=== PATIENT | female | born 1935 | race Caucasian/White ===

== ENCOUNTER 2017-11-29 16:48 | Inpatient (IN) | payer MEDICARE ==
[2017-11-29] MEDS: hydrALAZINE 25 MG TAB PO SCH (20:30)
[2017-11-29] MEDS: traMADol HCl 50 MG TAB PO SCH (20:31)
[2017-11-29] MEDS: Acetaminophen 500 MG TAB PO PRN (22:53)
[2017-11-29] MEDS: Metoclopramide HCl 10 MG/2 ML VIAL IVP SCH (22:53)
[2017-11-30] MEDS: Ondansetron ODT 4 MG TAB PO PRN (04:19)
[2017-11-30] MEDS: Metoclopramide HCl 10 MG/2 ML VIAL IVP SCH ×3 (05:29→18:05)
[2017-11-30] MEDS: Sodium Chloride 0.9% 20 ML ONE ×2 (05:29→12:31)
[2017-11-30 05:44] LABS: #Basophils 0.1 thou/uL (0.0-0.2); #Eosinphils 0.2 thou/uL (0.0-0.7); #Lymphocytes 0.5 thou/uL (1.20-3.40); #Monocytes 0.9 thou/uL (0.11-0.59); %Basophils 0.5 % (0.0-1.0); %Eosinophils 1.1 % (0.0-10.0); %Lymphocytes 3.1 % (21.0-51.0); %Monocytes 6.2 % (0.0-10.0); %Neutrophils 89.1 % (42.0-75.0); Hemoglobin 9.6 g/dL (12.0-16.0); Mean Corpuscular Hemoglobin 29.3 pg (27.0-31.0); Mean Corpuscular Volume 91.5 fl (81.0-99.0); Mean Platelet Volume 5.6 fL (7.4-10.4); Platelet Count 315 thou/uL (130-400); RBC Distribution Width 11.6 % (11.5-14.5); Red Blood Cell (RBC) Count 3.28 mill/uL (4.20-5.40); White Blood Cell (WBC) Count 14.6 thou/uL (4.8-10.8)
[2017-11-30 05:54] LABS: Anion Gap 13 mmol/L (10-20); BUN (Urea Nitrogen) 20 mg/dL (9.8-20.1); Calc. Creatinine Clearance 56 mL/min (70-130); Calcium 8.6 mg/dL (7.8-10.44); Carbon Dioxide 23 mmol/L (23-31); Chloride 107 mmol/L (98-107); Estimated GFR-MDRD 65; Glucose 110 mg/dL (83-110); Potassium 3.6 mmol/L (3.5-5.1); Sodium 139 mmol/L (136-145)
[2017-11-30] MEDS ORDERED: Prevnar 13-Val Conj/PF 0.5 ML SYRINGE IM ONE (09:00)
[2017-11-30] MEDS: Polyethylene Glycol 3350 17 GM Packet PO SCH (10:05)
[2017-11-30] MEDS: traMADol HCl 50 MG TAB PO SCH (10:06)
[2017-11-30] MEDS: Enoxaparin Sodium 30 MG/0.3 ML SYRINGE SC SCH (10:06)
[2017-11-30] MEDS: Metoprolol Tartrate 50 MG TAB PO SCH (10:08)
[2017-11-30] MEDS ORDERED: Sodium Chloride 0.9% 10 ML ONE ×2 (12:25→17:35)
--- NOTE | 2017-11-30 15:44 | HP ---
DATE OF ADMISSION: 11/29/2017 CHIEF COMPLAINT: Status post obstruction requiring surgical sigmoidectomy and colostomy, hypertensio n, resolving small-bowel obstruction and improving acute kidney injury. BRIEF HISTORY: This is a pleasant 82-year-old female, who was admitted with abdominal pain and constipation. CT scan on showed bowel obstruction. She underwent exploratory lapar otomy and was noted to have a sigmoid mass and underwent sigmoidectomy with end colostomy. She also had a large hiatal hernia and so underwent a gastropexy with hiatal hernia repair by anchoring a PEG tube. Her pathology showed chronic diverticular disease. She was treated with IV antibiotic and IV fluids, pain medications and was slowly improving, but then she had an episode of abdominal distentio n and was diagnosed with ileus. She was managed conservatively and then slowly started improving aga in and was tolerating diet and so was transferred here. Since arriving here, she has not had any out put in her colostomy. She is complaining of pain all over. She states that she is passing flatus. She denies any fever or chills. Denies any chest pain or shortness of breath. She did eat some for breakfast and lunch. PAST SURGICAL HISTORY: 1. Cholecystectomy. 2. Hysterectomy. 3. Rectocele and cystocele repair. 4. History of temporary dialysis access placement. PAST MEDICAL HISTORY: 1. Hypertension. 2. Hiatal hernia. 3. Gastroesophageal reflux disease. 4. Degenerative joint disease. 5. Temporary hemodialysis. 6. Dyslipidemia. 7. Depression. FAMILY HISTORY: Noncontributory to current admission. PSYCHOSOCIAL HISTORY: No documented tobacco, alcohol or IV drug abuse. He was fairly active and ind ependent. REVIEW OF SYSTEMS: CARDIOVASCULAR: Denies any chest pain, shortness of breath, palpitations, paroxysmal nocturnal dyspn ea, orthopnea, pedal edema. RESPIRATORY: Denies any chronic cough, expectoration or pleuritic type chest pain. GASTROINTESTINAL: See history of present illness. GENITOURINARY: Denies any frequency, urgency, dysuria or hematuria. CENTRAL NERVOUS SYSTEM: Generalized weakness. PHYSICAL EXAMINATION: GENERAL: Very pleasant 82-year-old, thin, female, in no apparent distress other than pain. VITAL SIGNS: She is afebrile, heart rate 84, respirations 20, oxygen saturation 92% on room air, blo od pressure 165/44. HEENT: Normocephalic, atraumatic. Pupils equal and reactive to light and accommodation. NECK: No JVD, thyromegaly, cervical adenopathy, throat exudates or carotid bruits. CARDIOVASCULAR: S1 and S2 plus, rate and rhythm regular. RESPIRATORY: Normal vesicular breath sounds in all lung wagoner. ABDOMEN: Soft, minimal tenderness. Bowel sounds are heard in all quadrants. No organomegaly, no pa lpable mass, no CVA angle tenderness. PEG tube site is healthy. EXTREMITIES: Without cyanosis or clubbing. Peripheral pulses are palpable. CENTRAL NERVOUS SYSTEM: Generalized weakness. LABORATORY VALUES: Does show an elevated white count of 14.6, H&H is 9.6 and 30. Sodium 139, potass ium 3.6, BUN and creatinine is 20 and 0.84. IMPRESSION: 1. Recent large intestinal obstruction due to sigmoid mass, status post sigmoidectomy and colostomy placement. 2. Postoperative ileus which has resolved, but looks like it may be a recurring. 3. Hypertension. 4. Gastroesophageal reflux disease. 5. Dyslipidemia. 6. Depression. 7. Leukocytosis. 8. Pain. PLAN: 1. Increase tramadol to 50 mg q.6 hours. 2. Check KUB. 3. Monitor output through colostomy. 4. Continue current medications. 5. Physical therapy. 6. Nutritional support. 7. DVT and stress ulcer prophylaxis. 8. Routine laboratory values. 9. Discussed with patient and nursing in detail and all questions answered.
[2017-11-30] MEDS: Guaifenesin DM 100-10/5 ML UDCUP PO PRN (16:10)
[2017-11-30] MEDS: traMADol HCl 50 MG TAB PO PRN (16:12)
--- NOTE | 2017-11-30 16:23 | RAD ---
PORTABLE SUPINE AP ABDOMINAL RADIOGRAPH 11/30/17 HISTORY: Abdominal distention. Surgical intervention for ileus last week. No bowel movement in 24 hours. Patie nt with colostomy. COMPARISON: 11/28/17. FINDINGS: Dilated loops of distended gas filled small bowel are again present. there has been progression of co ntrast into the colon with contrast seen in the transverse and descending colon. Midline surgical cli ps are again seen with surgical clips overlying the right upper quadrant. There is a radiopaque rachel ter overlying the left mid lung zone which may be related to enteric feeding tube. Vertebroplasty alex nges of lumbar vertebral body are seen with degenerative changes seen in the spine. No other interval change from prior exam. IMPRESSION: 1. Persistent distended and dilated gas filled loops of small bowel suggesting either partial sm all bowel obstruction versus ileus. There is contrast now seen in the colon. 2. Postsurgical changes of the abdomen and pelvis. 3. Enteric feeding tube noted in place in the left lower quadrant. 4. Elevation of right hemidiaphragm. POS: [facility]
[2017-11-30] MEDS: Dextrose 5 % And 0.9 % NaCl 1,000 ML IV SCH (18:55)
[2017-11-30] MEDS: hydrALAZINE 25 MG TAB PO SCH (20:11)
[2017-12-01] MEDS: Metoclopramide HCl 10 MG/2 ML VIAL IVP SCH ×4 (00:27→18:48)
[2017-12-01] MEDS: Labetalol HCl 100 MG/20 ML VIAL SLOW IVP PRN ×4 (00:33→20:47)
[2017-12-01 05:26] LABS: #Basophils 0.1 thou/uL (0.0-0.2); #Eosinphils 0.1 thou/uL (0.0-0.7); #Lymphocytes 0.5 thou/uL (1.20-3.40); #Monocytes 0.8 thou/uL (0.11-0.59); #Neutrophils 10.8 thou/uL (1.40-6.50); %Basophils 0.4 % (0.0-1.0); %Eosinophils 0.6 % (0.0-10.0); %Monocytes 6.6 % (0.0-10.0); %Neutrophils 88.3 % (42.0-75.0); Hemoglobin 9.4 g/dL (12.0-16.0); Mean Corpuscular HGB CONC 32.5 g/dL (32.0-36.0); Mean Corpuscular Hemoglobin 29.4 pg (27.0-31.0); Mean Corpuscular Volume 90.4 fl (81.0-99.0); Mean Platelet Volume 5.6 fL (7.4-10.4); Platelet Count 286 thou/uL (130-400); RBC Distribution Width 11.5 % (11.5-14.5); White Blood Cell (WBC) Count 12.3 thou/uL (4.8-10.8)
[2017-12-01 05:34] LABS: Lactic Acid 0.6 mmol/L (0.5-2.2)
[2017-12-01 05:38] LABS: Anion Gap 12 mmol/L (10-20); BUN (Urea Nitrogen) 16 mg/dL (9.8-20.1); Calc. Creatinine Clearance 56 mL/min (70-130); Calcium 8.5 mg/dL (7.8-10.44); Carbon Dioxide 24 mmol/L (23-31); Chloride 106 mmol/L (98-107); Estimated GFR-MDRD 65; Glucose 138 mg/dL (83-110); Potassium 3.3 mmol/L (3.5-5.1); Sodium 139 mmol/L (136-145)
[2017-12-01] MEDS: Dextrose 5 % And 0.9 % NaCl 1,000 ML IV SCH (08:00)
[2017-12-01] MEDS ORDERED: cloNIDine 0.1mg/24 Hour PATCH TD SCH (09:00)
[2017-12-01] MEDS: Enoxaparin Sodium 30 MG/0.3 ML SYRINGE SC SCH (10:16)
[2017-12-01] MEDS: Metoprolol Tartrate 50 MG TAB PO SCH (10:17)
[2017-12-01] MEDS: Polyethylene Glycol 3350 17 GM Packet PO SCH (10:18)
[2017-12-01] MEDS: Ondansetron HCl/PF 4 MG/2 ML Vial SLOW IVP PRN (15:46)
--- NOTE | 2017-12-01 16:15 | PRG ---
DATE OF SERVICE: 12/01/2017 SUBJECTIVE: Ms. Musa is feeling better. She has put out close to 1800 mL out of her PEG tube. S he states that she is still passing gas, but very little. Her pain is improved with the morphine. I advised her about my discussion with Dr. Hull yesterday. He stated that this is most likely postop ileus and the more she gets up and moves around the better. She is going to feel and faster the bow els are going to regain function. No family at bedside. OBJECTIVE: VITAL SIGNS: She is afebrile, heart rate 96, respirations are 18, oxygen saturation 94% on 2 liters, and blood pressure 189/92. CARDIOVASCULAR SYSTEM: S1, S2 plus. RESPIRATORY SYSTEM: Normal vesicular breath sounds. ABDOMEN: Soft, nontender, bowel sounds heard in all quadrants, but hypoactive. EXTREMITIES: Without cyanosis or clubbing. LABORATORY VALUES: White count is down to 12.3, H and H is 9.4 and 28.9. Sodium 139, potassium is l ow at 3.3, BUN and creatinine 16 and 0.83. IMPRESSION: 1. Postoperative ileus. 2. Hypokalemia. 3. Improving pain. 4. Improving leukocytosis. 5. Hypertension, not well controlled. 6. Deconditioning. PLAN: 1. Increase clonidine patch to TTS 2. 2. Change IV fluids to D5 normal saline with 20 mEq of KCl. 3. Encourage activity. 4. Routine laboratory values. 5. DVT and stress ulcer prophylaxis. 6. Decubitus precautions. 7. Routine laboratory values. 8. Discussed with patient and nursing in detail and all questions answered.
[2017-12-01] MEDS: D5 0.9% NS w/ 20 mEq KCl 1,000 ML IV SCH (16:45)
[2017-12-01] MEDS: hydrALAZINE 25 MG TAB PO SCH (20:41)
[2017-12-02] MEDS: D5 0.9% NS w/ 20 mEq KCl 1,000 ML IV SCH ×3 (02:10→22:12)
[2017-12-02] MEDS: Labetalol HCl 100 MG/20 ML VIAL SLOW IVP PRN ×3 (03:13→17:28)
[2017-12-02] MEDS: Metoclopramide HCl 10 MG/2 ML VIAL IVP SCH ×4 (05:20→18:36)
[2017-12-02 05:33] LABS: #Lymphocytes 0.4 thou/uL (1.20-3.40); #Monocytes 0.8 thou/uL (0.11-0.59); #Neutrophils 10.4 thou/uL (1.40-6.50); %Basophils 0.4 % (0.0-1.0); %Eosinophils 0.4 % (0.0-10.0); %Lymphocytes 3.5 % (21.0-51.0); %Monocytes 7.1 % (0.0-10.0); %Neutrophils 88.6 % (42.0-75.0); Hemoglobin 8.8 g/dL (12.0-16.0); Mean Corpuscular HGB CONC 32.1 g/dL (32.0-36.0); Mean Corpuscular Hemoglobin 29.2 pg (27.0-31.0); Mean Corpuscular Volume 91.2 fl (81.0-99.0); Mean Platelet Volume 5.6 fL (7.4-10.4); Platelet Count 299 thou/uL (130-400); RBC Distribution Width 11.6 % (11.5-14.5); Red Blood Cell (RBC) Count 3.01 mill/uL (4.20-5.40); White Blood Cell (WBC) Count 11.7 thou/uL (4.8-10.8)
[2017-12-02 05:44] LABS: Anion Gap 12 mmol/L (10-20); BUN (Urea Nitrogen) 15 mg/dL (9.8-20.1); Calc. Creatinine Clearance 58 mL/min (70-130); Calcium 8.4 mg/dL (7.8-10.44); Carbon Dioxide 25 mmol/L (23-31); Chloride 110 mmol/L (98-107); Estimated GFR-MDRD 67; Glucose 150 mg/dL (83-110); Potassium 3.7 mmol/L (3.5-5.1); Sodium 143 mmol/L (136-145)
[2017-12-02] MEDS ORDERED: Sodium Chloride 0.9% 10 ML ONE (09:21)
[2017-12-02] MEDS: Enoxaparin Sodium 30 MG/0.3 ML SYRINGE SC SCH (09:50)
[2017-12-02] MEDS: Metoprolol Tartrate 50 MG TAB PO SCH ×2 (09:51→15:11)
[2017-12-02] MEDS: Polyethylene Glycol 3350 17 GM Packet PO SCH (09:51)
--- NOTE | 2017-12-02 13:26 | PRG ---
DATE OF SERVICE: 12/02/2017 SUBJECTIVE: Ms. Musa is doing the same. She states that she feels hungry and she would like to t ry to eat something. She is hardly doing any with therapy. She apparently sat up for a while. She is still having significant drainage from her G-tube. Since this morning, actually she had 1350 out for the last 24 hours and she has about 600 mL in the bag right now. She states that she is passing flatus. She denies any fever or chills. She states that she is sore in her neck area. OBJECTIVE: VITAL SIGNS: She is afebrile, heart rate 83, respirations 20, oxygen saturation 97%, and blood press ure 178/79. CARDIOVASCULAR SYSTEM: S1, S2 plus. RESPIRATORY SYSTEM: Normal breath sounds. ABDOMEN: Soft, minimal distention. Hypoactive bowel sounds. EXTREMITIES: Without cyanosis or clubbing. LABORATORY DATA: Shows white count of 11.7, hemoglobin and hematocrit of 8.8 and 27.5. Sodium 143, potassium 3.7, BUN and creatinine is 15 and 0.81. Her lactic acid level was 0.6. IMPRESSION: 1. Paralytic postoperative ileus. 2. Improving leukocytosis. 3. Hypertension, not well controlled. 4. Resolved hypokalemia. 5. Deconditioning. PLAN: 1. Change her to clonidine TTS. 2. Continue IV fluids. 3. Start her on a clear liquid diet. 4. DVT and stress ulcer prophylaxis. 5. Decubitus precautions. 6. Routine laboratory values. 7. Discussed with patient and nursing in detail. All questions answered.
[2017-12-02] MEDS ORDERED: cloNIDine 0.1mg/24 Hour PATCH TD SCH (14:00)
[2017-12-02] MEDS: cloNIDine 0.3mg/24 Hour PATCH TD SCH (14:39)
[2017-12-02] MEDS: traMADol HCl 50 MG TAB PO PRN (15:11)
[2017-12-02] MEDS: hydrALAZINE 25 MG TAB PO SCH (21:41)
[2017-12-03] MEDS: Metoclopramide HCl 10 MG/2 ML VIAL IVP SCH ×5 (00:05→22:42)
[2017-12-03] MEDS: Labetalol HCl 100 MG/20 ML VIAL SLOW IVP PRN ×2 (04:39→12:56)
[2017-12-03] MEDS: D5 0.9% NS w/ 20 mEq KCl 1,000 ML IV SCH ×2 (08:25→18:25)
[2017-12-03] MEDS: Polyethylene Glycol 3350 17 GM Packet PO SCH (09:00)
[2017-12-03] MEDS: Enoxaparin Sodium 30 MG/0.3 ML SYRINGE SC SCH (10:26)
[2017-12-03] MEDS: Metoprolol Tartrate 50 MG TAB PO SCH (10:26)
--- NOTE | 2017-12-03 14:18 | PRG ---
DATE OF SERVICE: 12/03/2017 SUBJECTIVE: Ms. Musa was feeling much better today. Denies any nausea or vomiting. She still brandt s some back pain. No fever or chills. She is tolerating her clear liquids. The plan is to clamp he r G-tube completely and see how she does with clears today and if she does well, then we will advance to full liquid diet. I again encouraged her to get up and move around. Her spouse is in the room. She has been restarted back on her oral medications for her blood pressure and still fluctuating. OBJECTIVE: VITAL SIGNS: She is afebrile, heart rate is 80, respirations are 20, blood pressure 205/86 and is do wn to 190/84. CARDIOVASCULAR: S1, S2 plus. RESPIRATORY: Normal vesicular breath sounds. ABDOMEN: Soft, nontender. Hypoactive bowel sounds. EXTREMITIES: Without cyanosis or clubbing. IMPRESSION: 1. Postoperative ileus. 2. Recent large bowel obstruction, status post sigmoid resection and colostomy. 3. Hypertension, not well controlled. 4. Deconditioning. PLAN: 1. Add amlodipine. 2. Clear liquid diet. 3. Clamp G-tube. 4. Increase activity. 5. DVT and stress ulcer prophylaxis. 6. Pain control. 7. I discussed with the patient and spouse in detail. All questions answered. 8. Dr. Carl Roe on-call now until 9:00 p.m. 12/08/2017.
[2017-12-03] MEDS: hydrALAZINE 25 MG TAB PO SCH ×2 (16:19→20:02)
[2017-12-03] MEDS: Acetaminophen 500 MG TAB PO PRN (16:23)
[2017-12-03] MEDS: traMADol HCl 50 MG TAB PO PRN (16:23)
[2017-12-04] MEDS: D5 0.9% NS w/ 20 mEq KCl 1,000 ML IV SCH ×3 (03:09→23:23)
[2017-12-04] MEDS: Metoclopramide HCl 10 MG/2 ML VIAL IVP SCH ×4 (04:57→23:27)
[2017-12-04] MEDS ORDERED: Sodium Chloride 0.9% 10 ML ONE (05:11)
[2017-12-04 05:45] LABS: Anion Gap 11 mmol/L (10-20); BUN (Urea Nitrogen) 15 mg/dL (9.8-20.1); Calc. Creatinine Clearance 64 mL/min (70-130); Calcium 8.5 mg/dL (7.8-10.44); Carbon Dioxide 22 mmol/L (23-31); Chloride 112 mmol/L (98-107); Estimated GFR-MDRD 76; Glucose 135 mg/dL (83-110); Sodium 141 mmol/L (136-145)
[2017-12-04 06:03] LABS: Band 20 % (5-11); Eosinophils 2 % (0-10); Hemoglobin 8.6 g/dL (12.0-16.0); Lymphocytes 7 % (21-51); MDiff Complete? YES; Mean Corpuscular HGB CONC 32.1 g/dL (32.0-36.0); Mean Corpuscular Hemoglobin 29.5 pg (27.0-31.0); Mean Corpuscular Volume 91.7 fl (81.0-99.0); Mean Platelet Volume 5.8 fL (7.4-10.4); Metamyelocyte 1 % (0-0); Monocytes 4 % (0-10); Neutrophil 66 % (42-75); PLT Morphology Comment Appears Adequate; Platelet Count 312 thou/uL (130-400); RBC Distribution Width 12.3 % (11.5-14.5); RBC Morphology Normal; White Blood Cell (WBC) Count 10.5 thou/uL (4.8-10.8)
[2017-12-04] MEDS: Polyethylene Glycol 3350 17 GM Packet PO SCH (08:11)
[2017-12-04] MEDS: Enoxaparin Sodium 30 MG/0.3 ML SYRINGE SC SCH (08:12)
[2017-12-04] MEDS: hydrALAZINE 25 MG TAB PO SCH ×3 (08:12→22:33)
[2017-12-04] MEDS: Metoprolol Tartrate 50 MG TAB PO SCH (08:12)
[2017-12-04] MEDS: Acetaminophen 500 MG TAB PO PRN ×2 (08:13→17:30)
[2017-12-04] MEDS: traMADol HCl 50 MG TAB PO PRN (17:30)
--- NOTE | 2017-12-05 00:16 | PRG ---
DATE OF SERVICE: 12/04/2017 DATE OF ADMISSION: 11/29/2017 HISTORY OF PRESENT ILLNESS: Ms. Musa is a very pleasant 82-year-old white female that was admitte d on 11/21/2017 with a bowel obstruction. She underwent exploratory laparoscopy and had a sigmoid ma ss and underwent sigmoidectomy and end colostomy. She also had a large hiatal hernia when under jt ropexy with hiatal hernia repair by anchoring a PEG tube. Her pathology revealed chronic diverticula r disease. She was treated with IV antibiotics, IV fluids, and eventually has improved. She was man aged conservatively and then has been improving. She was transferred to [facility] f or continued physical therapy and occupational therapy. She states she is doing well and has no comp laints today. PHYSICAL EXAMINATION: VITAL SIGNS: Reveal blood pressure this morning was elevated at 136-65, but most of the time is runn ing 170s-180s. Pulse 82-73, respirations 20, O2 sat 96%-97% on 2 liters. T-max 98.1. GENERAL: This is a well-developed, well-nourished, very pleasant white female, in no apparent distre ss at this time. HEENT: Reveals normocephalic, nontraumatic cranium. Pupils equally round and reactive. Extraocular movements intact. Nose and throat are slightly dry. NECK: Supple, without mass, nodes, or bruits. LUNGS: Chest is clear to auscultation. No rales, no rhonchi, no wheezes or cough is heard. CARDIOVASCULAR: Heart reveals a regular rate and rhythm without murmurs, gallops, or rubs. ABDOMEN: Soft and nontender, without organomegaly. Normal bowel sounds are noted in all 4 quadrants . GENITOURINARY EXAM: Deferred. Colostomy is functioning well. EXTREMITIES: Reveal no clubbing, cyanosis, or edema. IMPRESSION: 1. Postoperative ileus, which is much better. 2. Recent bowel obstruction, status post sigmoid resection and colostomy. 3. Hypertension, still not well controlled. 4. Deconditioning. PLAN: 1. Amlodipine has been added. 2. Continue clear liquid diet as able. 3. Clamp G-tube. 4. Increase activity. 5. DVT and stress ulcer prophylaxis. 6. Continue pain control. 7. Continue PT and OT.
[2017-12-05] MEDS: Acetaminophen 500 MG TAB PO PRN ×2 (02:35→15:42)
[2017-12-05] MEDS: traMADol HCl 50 MG TAB PO PRN ×2 (02:36→15:43)
[2017-12-05] MEDS: Metoclopramide HCl 10 MG/2 ML VIAL IVP SCH ×3 (06:14→17:47)
[2017-12-05] MEDS: Polyethylene Glycol 3350 17 GM Packet PO SCH (09:13)
[2017-12-05] MEDS: Enoxaparin Sodium 30 MG/0.3 ML SYRINGE SC SCH (09:13)
[2017-12-05] MEDS: Metoprolol Tartrate 50 MG TAB PO SCH (09:14)
[2017-12-05] MEDS: hydrALAZINE 25 MG TAB PO SCH ×3 (09:14→21:00)
[2017-12-05] MEDS: D5 0.9% NS w/ 20 mEq KCl 1,000 ML IV SCH ×2 (09:48→19:11)
[2017-12-05] MEDS: Ondansetron HCl/PF 4 MG/2 ML Vial SLOW IVP PRN (09:49)
--- NOTE | 2017-12-05 22:37 | PRG ---
DATE OF SERVICE: 12/05/2017 HISTORY OF PRESENT ILLNESS: Ms. Musa is a very pleasant 82-year-old white female that was admitte d with bowel obstruction. She underwent exploratory laparotomy and had a sigmoid mass with sigmoidos copy and colonoscopy. She has a large hiatal hernia and had a gastropexy with hiatal hernia repair b y emptying the PEG tube. Pathology revealed chronic diverticular disease. She was treated with IV a ntibiotics and IV fluids and eventually improved. She was stabilized and transferred to [facility] for PT and OT. She states she is doing well and has no complaints. PHYSICAL EXAMINATION: VITAL SIGNS: Blood pressure is still slightly elevated 173/76, pulse 80, respirations 18, O2 sat 96% on 2 liters, T-max is 97.5. GENERAL: This is a well-developed, well-nourished, very pleasant white female in no apparent distres s at this time. HEENT: Reveals normocephalic, nontraumatic cranium. Pupils are equally round and reactive. Extraoc ular movements are intact. Nose and throat are clear and moist. NECK: Supple, without mass, nodes, bruits. LUNGS: Chest is clear to auscultation. No rales, rhonchi, wheeze or cough is heard. CARDIOVASCULAR: Reveals a regular rate and rhythm. No murmurs, gallops or rubs are noted. ABDOMEN: Soft, nontender, without organomegaly. Normal bowel sounds are noted. Colostomy is functi oning well. The patient has very slow bowel sounds. GENITOURINARY: Deferred. EXTREMITIES: Reveal no clubbing, cyanosis or edema. IMPRESSION: 1. Postop ileus, slowly better. 2. Recent bowel obstruction, status post sigmoid resection, colostomy. 3. Hypertension, still not well controlled. 4. Deconditioning. PLAN: 1. Amlodipine has been added. We will let it work. 2. We will continue to monitor blood pressure closely. 3. Continue liquid diet as able. 4. Plan G tube. 5. Increase activity. 6. DVT and stress ulcer prophylaxis. 7. We will continue pain control. 8. Continue physical therapy and occupational therapy.
[2017-12-06] MEDS: traMADol HCl 50 MG TAB PO PRN ×3 (00:16→19:35)
[2017-12-06] MEDS: Metoclopramide HCl 10 MG/2 ML VIAL IVP SCH ×4 (00:16→17:42)
[2017-12-06] MEDS: Guaifenesin DM 100-10/5 ML UDCUP PO PRN ×2 (02:12→19:44)
[2017-12-06] MEDS: Ondansetron HCl/PF 4 MG/2 ML Vial SLOW IVP PRN ×2 (02:23→16:29)
[2017-12-06] MEDS: Labetalol HCl 100 MG/20 ML VIAL SLOW IVP PRN ×2 (02:59→19:36)
[2017-12-06] MEDS: D5 0.9% NS w/ 20 mEq KCl 1,000 ML IV SCH ×2 (05:11→14:27)
[2017-12-06 06:30] LABS: #Eosinphils 0.1 thou/uL (0.0-0.7); #Lymphocytes 0.5 thou/uL (1.20-3.40); #Monocytes 0.5 thou/uL (0.11-0.59); #Neutrophils 7.3 thou/uL (1.40-6.50); %Basophils 0.4 % (0.0-1.0); %Eosinophils 1.3 % (0.0-10.0); %Lymphocytes 6.1 % (21.0-51.0); %Monocytes 6.3 % (0.0-10.0); %Neutrophils 85.9 % (42.0-75.0); Hemoglobin 8.4 g/dL (12.0-16.0); Mean Corpuscular HGB CONC 31.4 g/dL (32.0-36.0); Mean Corpuscular Hemoglobin 28.9 pg (27.0-31.0); Mean Corpuscular Volume 92.1 fl (81.0-99.0); Mean Platelet Volume 5.5 fL (7.4-10.4); Platelet Count 335 thou/uL (130-400); RBC Distribution Width 12.3 % (11.5-14.5); White Blood Cell (WBC) Count 8.5 thou/uL (4.8-10.8)
[2017-12-06 06:42] LABS: Anion Gap 10 mmol/L (10-20); BUN (Urea Nitrogen) 11 mg/dL (9.8-20.1); Calc. Creatinine Clearance 64 mL/min (70-130); Calcium 8.5 mg/dL (7.8-10.44); Carbon Dioxide 21 mmol/L (23-31); Chloride 112 mmol/L (98-107); Estimated GFR-MDRD 76; Glucose 122 mg/dL (83-110); Potassium 4.1 mmol/L (3.5-5.1); Sodium 139 mmol/L (136-145)
[2017-12-06] MEDS: Polyethylene Glycol 3350 17 GM Packet PO SCH (09:05)
[2017-12-06] MEDS: Enoxaparin Sodium 30 MG/0.3 ML SYRINGE SC SCH (09:05)
[2017-12-06] MEDS: hydrALAZINE 25 MG TAB PO SCH ×3 (09:06→19:52)
[2017-12-06] MEDS: Metoprolol Tartrate 50 MG TAB PO SCH (09:07)
[2017-12-06] MEDS: Acetaminophen 500 MG TAB PO PRN ×2 (10:04→19:34)
[2017-12-06] MEDS ORDERED: Morphine 4 MG/ML Carpuject SLOW IVP PRN (14:23)
[2017-12-06] MEDS: Ondansetron ODT 4 MG TAB PO PRN (20:38)
[2017-12-06] MEDS: Morphine 4 MG/ML Carpuject SLOW IVP PRN (20:43)
--- NOTE | 2017-12-06 23:19 | PRG ---
DATE OF ADMISSION: 11/29/2017 DATE OF SERVICE: 12/06/2017 SUBJECTIVE: Ms. Musa is a very pleasant 82-year-old white female that was admitted to the [facility] with bowel obstruction. She underwent an exploratory laparotomy, had a sigmoid mass with sigmoidosc ope and colonoscopy. She also had a large hiatal hernia and gastropexy with hiatal hernia repair don e by entering the PEG tube. Pathology revealed chronic diverticular disease. She was treated with I V antibiotics and IV fluids eventually improved. She was stabilized and transferred to [facility] for physical therapy and occupational therapy. She has no complaints today. The patient states she just has no appetite, although she was started on full liquid diet today and s eemed to tolerate that very well. OBJECTIVE: VITAL SIGNS: This morning reveal blood pressure 160/84, pulse 70 to 80, respirations 23, O2 sat 95% on 1 to 2 liters, T-max 98.6. GENERAL: This is a well-developed, well-nourished, very pleasant white female in no apparent distres s at this time. HEENT: Reveals normocephalic, nontraumatic cranium. Pupils are equally round and reactive. Extraoc ular movements intact. Nose and throat are slightly dry. NECK: Supple, without mass, nodes, or bruits. CHEST: Clear to auscultation. No rales, no rhonchi, no wheezes are heard. CARDIOVASCULAR: Reveals a regular rate and rhythm without murmurs, gallops, or rubs. ABDOMEN: Soft, nontender, without organomegaly, normal bowel sounds are noted. No rebound or guardi ng is noted. : Deferred. EXTREMITIES: Reveal no clubbing, cyanosis, or edema. IMPRESSION: 1. Hypertension, still not well controlled. 2. Postop ileus slowly better. 3. Recent bowel obstruction, status post sigmoid resection and colostomy. 4. Deconditioning. PLAN: 1. Amlodipine was added to the blood pressure, but still not seem to be doing much. 2. Continue to monitor blood pressure closely. 3. Continue liquid diet as able. 4. Plan G-tube. 5. Increase activity. 6. Deep venous thrombosis and stress ulcer prophylaxis. 7. Continue pain medicine control. 8. Continue physical therapy and occupational therapy.
[2017-12-07] MEDS: Metoclopramide HCl 10 MG/2 ML VIAL IVP SCH ×4 (00:04→20:51)
[2017-12-07] MEDS: D5 0.9% NS w/ 20 mEq KCl 1,000 ML IV SCH ×3 (02:15→23:40)
[2017-12-07] MEDS: Ondansetron ODT 4 MG TAB PO PRN (02:38)
[2017-12-07] MEDS: Metoprolol Tartrate 50 MG TAB PO SCH (08:33)
[2017-12-07] MEDS: Enoxaparin Sodium 30 MG/0.3 ML SYRINGE SC SCH (08:33)
[2017-12-07] MEDS: hydrALAZINE 25 MG TAB PO SCH ×3 (08:33→20:56)
[2017-12-07] MEDS: Polyethylene Glycol 3350 17 GM Packet PO SCH (08:34)
--- NOTE | 2017-12-07 10:43 | RAD ---
ABDOMEN 2 VIEWS: HISTORY: Obstruction. COMPARISON: None. FINDINGS: Multiple surgical clips are present in the pelvis. There are distended air-filled loops of large and small bowel. Evaluation is limited due to upright examination. On decubitus view, there is no significant free air appreciated. There appears to be a wound vac of left lower quadrant of the abdomen. IMPRESSION: Moderate gaseous distention of large and small bowel suggesting ileus. There is hazy hypodensity thr oughout the abdomen without definite free air of the decubitus view. Upright view is recommended. POS: [facility]
[2017-12-07] MEDS ORDERED: Morphine 4 MG/ML Carpuject ONE (12:54)
[2017-12-07] MEDS: Morphine 4 MG/ML Carpuject SLOW IVP PRN (12:58)
[2017-12-07] MEDS: Labetalol HCl 100 MG/20 ML VIAL SLOW IVP PRN (15:05)
--- NOTE | 2017-12-07 16:11 | RAD ---
ABDOMINAL RADIOGRAPH SINGLE VIEW: INDICATION: Ileus, abdominal pain. COMPARISON: Comparison is made to 11/30/17. FINDINGS: Dilated loops of air-filled bowel with differential air fluid levels are present within the imaged ab domen and pelvis. No obvious free air is seen. No consolidation of the lung bases. Slight blunting of the right lateral costophrenic sulcus may reflect mild pleural fluid versus pleural thickening. IMPRESSION: Dilated bowel of the imaged abdomen with differential air fluid levels. The possibility of ileus monisha morgan mechanical obstruction are diagnostic considerations. Recommend continued imaging followup. POS: [facility]
--- NOTE | 2017-12-07 16:57 | PRG ---
DATE OF SERVICE: 12/07/2017 SUBJECTIVE: Ms. Musa is a very pleasant 82-year-old white female admitted to the hospital with alexander wel obstruction. She underwent exploratory laparotomy and had sigmoid mass with sigmoidoscope and co lonoscopy. She had a large hiatal hernia and gastropexy with hiatal hernia repair done by anchoring the PEG tube. Pathology revealed chronic diverticular disease. She was treated with IV antibiotics and IV fluids, eventually improved and stabilized and transferred to [facility] for p hysical therapy and occupational therapy. The patient over the last couple of days has been nauseated. She has not been eating very well. We did do an abdominal series on her which revealed dilated loops of bowel and so she also has another i leus. We will stop her feedings at this time and put her bowel at rest. We will continue her IV. W e will repeat evaluations this morning and laboratories. PHYSICAL EXAMINATION: VITAL SIGNS: This morning reveal blood pressure is somewhat elevated at 195/85, pulse 71-79, respira tions 16-18, O2 sat 94%-95% on 1 liter nasal cannula, T-max 98.1. GENERAL: This is a well-developed, well-nourished, very pleasant white female in no apparent distres s at this time. HEENT: Reveals normocephalic and nontraumatic cranium. Pupils equal, round, and reactive. Extraocu lar movements are intact. Nose and throat are slightly dry. NECK: Supple, without mass, nodes or bruits. CHEST: Clear to auscultation. No rales, no rhonchi, no wheezes and no cough is noted. HEART: Reveals a regular rate and rhythm without murmurs, gallops or rubs. ABDOMEN: Soft and nontender without organomegaly. Normal bowel sounds are noted. No rebound or gua rding is noted. The patient states she actually feels much better after the NG tube was connected to the feeding tube. She had approximately 700 mL of foul smelling acid looking residual. LABORATORY DATA: Laboratory yesterday revealed white count of 8,500, hemoglobin 8.4, hematocrit 26.7 and platelet count 335,000. Sodium yesterday 139, potassium 4.1, chloride 112, carbon dioxide 21 wi th BUN 11 and creatinine 0.73. GFR was 76. ASSESSMENT: 1. Ileus. 2. Hypertension, not well controlled. 3. Recent bowel obstruction, status post sigmoid resection and colostomy. 4. Deconditioning. PLAN: 1. The patient states she is not having any pain and feels actually much better since we decompresse d her stomach. 2. Continue to monitor the patient's blood pressure closely. 3. Continue n.p.o. at this time. 4. Increase activity. 5. Deep venous thrombosis prophylaxis. 6. Stress ulcer prophylaxis. 7. Pain control as needed. 8. Continue physical therapy and occupational therapy. 9. Place the bowel at rest.
[2017-12-08] MEDS: Labetalol HCl 100 MG/20 ML VIAL SLOW IVP PRN ×4 (00:45→18:16)
[2017-12-08] MEDS: Metoclopramide HCl 10 MG/2 ML VIAL IVP SCH ×3 (06:02→21:44)
[2017-12-08] MEDS: Enoxaparin Sodium 30 MG/0.3 ML SYRINGE SC SCH (08:53)
[2017-12-08] MEDS: D5 0.9% NS w/ 20 mEq KCl 1,000 ML IV SCH ×2 (08:53→18:17)
[2017-12-08] MEDS: Polyethylene Glycol 3350 17 GM Packet PO SCH (08:54)
[2017-12-08] MEDS: hydrALAZINE 25 MG TAB PO SCH ×3 (08:54→21:43)
[2017-12-08] MEDS: Metoprolol Tartrate 50 MG TAB PO SCH (08:54)
[2017-12-08] MEDS: hydrALAZINE 20 MG/ML VIAL SLOW IVP PRN (21:48)
--- NOTE | 2017-12-08 23:44 | PRG ---
DATE OF SERVICE: 12/08/2017 SUBJECTIVE: Ms. Musa is a very pleasant 82-year-old white female with a bowel obstruction. She u nderwent exploratory laparotomy and had a sigmoid mass, which was removed. She has large hiatal melinda ia, for which gastropexy with a hiatal hernia repair was done by anchoring the PEG tube. Pathology r eport revealed only chronic diverticular disease. She was treated with IV antibiotics and IV fluids. She eventually improved, stabilized, and transferred to [facility] for physical the rapy and occupational therapy. The patient states she has not been very hungry. We did do an abdominal series on her yesterday, whi ch revealed most likely another ileus or may be some small bowel obstruction. She has been made n.p. o. and put her bowel at rest at this time. She has not been vomiting. She has not had anything oral ly. We have just given her IV fluids and she has actually done pretty well. She has not had any sig nificant abdominal pain or gotten significantly sick. We have just started her on some Reglan hoping that her bowel sounds will start kicking again. OBJECTIVE: VITAL SIGNS: Blood pressure is elevated at 196/88 and she is off her medication, so we are adding hy dralazine IV q.4 hours p.r.n. blood pressure greater than 170. Pulse 78-85, respirations 18, O2 sat 96% on 1 liter nasal cannula, T-max is 97.2. GENERAL: On physical exam, this is a well-developed, well-nourished, pleasant white female in no katie arent distress at this time. HEENT: Reveals normocephalic, nontraumatic cranium. Pupils are equal, round, and reactive. Extraoc ular movements intact. Nose and throat are slightly dry. NECK: Supple without mass, nodes, or bruits. CHEST: Clear to auscultation. No rales, rhonchi, wheezes are heard. CARDIOVASCULAR: Reveals a regular rate and rhythm without murmurs, gallops, or rubs. ABDOMEN: Soft, still nontender. No rebound or guarding is noted. No bowel sounds are heard today, although they were heard and very slow yesterday. She states she feels much better after her G-tube was hooked to a Joseph bag and approximately 700 mL of foul-smelling acid-looking residual came out. Since then, she has actually been doing very well and has had no complaints of abdominal pain at all. She states she is just not hungry. She has been getting IV fluids. LABORATORY DATA: Laboratory has been stable, not done today. We will have that first thing tomorrow morning, but her labs have actually been stable. Her white count has been 8.5 with a hemoglobin of 8.4, hematocrit 26.7, platelet count 335,000. Sodium has been 139, potassium 4.1, chloride 112, carb on dioxide 21 with a BUN of 11, creatinine 0.73. Sugars have been 122, fasting. ASSESSMENT: 1. Ileus. The patient is presently at bowel rest. 2. Hypertension, not well controlled. We will switch her over to IV medication. 3. Recent bowel obstruction, status post sigmoid resection and colostomy. 4. Deconditioning. 5. Hypertension. PLAN: 1. The patient actually is feeling well and not feeling poorly. I do have her n.p.o. at this time. She has not had any nausea or vomiting. 2. Continue to monitor the patient's blood pressure. We will give hydralazine 25 mg IV q.4 hours p. r.n. systolic blood pressure greater than 70. 3. Continue n.p.o. at this time. 4. Increase activity. 5. Deep venous thrombosis prophylaxis. 6. Stress ulcer prophylaxis. 7. Pain control p.r.n. 8. Continue PT and OT. 9. Bowel rest.
[2017-12-09] MEDS: D5 0.9% NS w/ 20 mEq KCl 1,000 ML IV SCH ×3 (04:06→23:40)
[2017-12-09] MEDS: Labetalol HCl 100 MG/20 ML VIAL SLOW IVP PRN (04:15)
[2017-12-09 05:13] LABS: #Basophils 0.1 thou/uL (0.0-0.2); #Eosinphils 0.2 thou/uL (0.0-0.7); #Lymphocytes 0.6 thou/uL (1.20-3.40); #Monocytes 0.8 thou/uL (0.11-0.59); #Neutrophils 5.6 thou/uL (1.40-6.50); %Basophils 0.8 % (0.0-1.0); %Lymphocytes 8.6 % (21.0-51.0); %Neutrophils 76.8 % (42.0-75.0); Hemoglobin 8.8 g/dL (12.0-16.0); Mean Corpuscular Volume 90.5 fl (81.0-99.0); Mean Platelet Volume 5.4 fL (7.4-10.4); Platelet Count 401 thou/uL (130-400); RBC Distribution Width 12.3 % (11.5-14.5); Red Blood Cell (RBC) Count 3.04 mill/uL (4.20-5.40); White Blood Cell (WBC) Count 7.3 thou/uL (4.8-10.8)
[2017-12-09 05:32] LABS: ALT (SGPT) 16 U/L (8-55); AST (SGOT) 16 U/L (5-34); Albumin 2.5 g/dL (3.4-4.8); Alkaline Phosphatase 90 U/L (40-150); Anion Gap 12 mmol/L (10-20); BUN (Urea Nitrogen) 6 mg/dL (9.8-20.1); Bilirubin, Total 0.4 mg/dL (0.2-1.2); Calc. Creatinine Clearance 62 mL/min (70-130); Calcium 8.7 mg/dL (7.8-10.44); Carbon Dioxide 27 mmol/L (23-31); Chloride 106 mmol/L (98-107); Estimated GFR-MDRD 73; Globulin 2.7 g/dL (2.4-3.5); Glucose 120 mg/dL (83-110); Protein, Total 5.2 g/dL (6.0-8.3); Sodium 141 mmol/L (136-145)
[2017-12-09] MEDS: Metoclopramide HCl 10 MG/2 ML VIAL IVP SCH ×3 (05:38→21:05)
[2017-12-09] MEDS: Metoprolol Tartrate 50 MG TAB PO SCH (08:52)
[2017-12-09] MEDS: Enoxaparin Sodium 30 MG/0.3 ML SYRINGE SC SCH (08:52)
[2017-12-09] MEDS: hydrALAZINE 25 MG TAB PO SCH ×3 (08:52→21:05)
[2017-12-09] MEDS: Polyethylene Glycol 3350 17 GM Packet PO SCH (08:53)
[2017-12-09] MEDS: hydrALAZINE 20 MG/ML VIAL SLOW IVP PRN ×2 (09:55→21:04)
[2017-12-09] MEDS: cloNIDine 0.3mg/24 Hour PATCH TD SCH (13:07)
[2017-12-09] MEDS ORDERED: Nitroglycerin 0.1mg/Hour PATCH TD SCH (14:00)
--- NOTE | 2017-12-09 19:20 | PRG ---
DATE OF SERVICE: 12/09/2017 SUBJECTIVE: Ms. Musa developed ileus over the weekend and had to have her G-tube hooked up to gra vity drainage again. She is n.p.o. and started back on IV fluids. Once she becomes n.p.o., it becom es difficult to manage the blood pressure and hydralazine IV was also added in addition to the labeta lol. We met her daughter, [id number], and spouse in the room and explained the current situatio n, they understand. The plan is to add nitro patch to control her blood pressure and then hopefully tomorrow try to start her on some clear liquid diet. She apparently walked 57 feet on Saturday, but si nce then has not done very much. OBJECTIVE: VITAL SIGNS: She is afebrile, heart rate is 86, respirations are 20, oxygen saturation is 96% on 2 l iters, blood pressure at 09:55 was 200/100 and after getting hydralazine, her blood pressure is 139/6 8, heart rate 117. CARDIOVASCULAR: S1, S2 plus. RESPIRATORY: Normal vesicular breath sounds. ABDOMEN: Hyperactive bowel sounds heard. EXTREMITIES: Without cyanosis or clubbing. CENTRAL NERVOUS SYSTEM: Generalized weakness. LABORATORY VALUES: Shows a white count of 7.3, H&H is 8.8 and 27.3. Chemistry shows a sodium of 141 , potassium 4.0, BUN and creatinine 6.76. IMPRESSION: 1. Recurrent ileus versus obstruction. 2. Recent large intestinal obstruction, requiring sigmoid colectomy and colostomy. 3. Resolved renal insufficiency. 4. Hypertension. 5. Deconditioning. PLAN: 1. Add nitro patch. 2. Continue current medications. 3. IV fluids. 4. Anticipate starting her on clear liquids tomorrow. 5. DVT and stress ulcer prophylaxis. 6. Encouraged her to get up and move around. 7. Discussed with family in detail. All questions answered.
[2017-12-10] MEDS: Metoclopramide HCl 10 MG/2 ML VIAL IVP SCH ×3 (05:41→23:45)
[2017-12-10 05:46] LABS: #Basophils 0.1 thou/uL (0.0-0.2); #Lymphocytes 0.7 thou/uL (1.20-3.40); #Neutrophils 9.4 thou/uL (1.40-6.50); %Basophils 0.6 % (0.0-1.0); %Eosinophils 0.4 % (0.0-10.0); %Lymphocytes 5.9 % (21.0-51.0); %Monocytes 9.1 % (0.0-10.0); Hemoglobin 9.6 g/dL (12.0-16.0); Mean Corpuscular HGB CONC 31.8 g/dL (32.0-36.0); Mean Corpuscular Hemoglobin 28.8 pg (27.0-31.0); Mean Corpuscular Volume 90.4 fl (81.0-99.0); Mean Platelet Volume 5.7 fL (7.4-10.4); Platelet Count 449 thou/uL (130-400); RBC Distribution Width 12.3 % (11.5-14.5); Red Blood Cell (RBC) Count 3.35 mill/uL (4.20-5.40); White Blood Cell (WBC) Count 11.2 thou/uL (4.8-10.8)
[2017-12-10 05:56] LABS: Anion Gap 13 mmol/L (10-20); BUN (Urea Nitrogen) 9 mg/dL (9.8-20.1); Calc. Creatinine Clearance 59 mL/min (70-130); Carbon Dioxide 26 mmol/L (23-31); Chloride 107 mmol/L (98-107); Estimated GFR-MDRD 68; Glucose 129 mg/dL (83-110); Potassium 4.2 mmol/L (3.5-5.1); Sodium 142 mmol/L (136-145)
[2017-12-10] MEDS: Acetaminophen 500 MG TAB PO PRN ×2 (06:00→18:31)
[2017-12-10] MEDS: Nitroglycerin 0.1mg/Hour PATCH TD SCH (09:45)
[2017-12-10] MEDS: D5 0.9% NS w/ 20 mEq KCl 1,000 ML IV SCH ×2 (09:45→20:45)
[2017-12-10] MEDS: Metoprolol Tartrate 50 MG TAB PO SCH (09:46)
[2017-12-10] MEDS: hydrALAZINE 25 MG TAB PO SCH ×3 (09:46→20:44)
[2017-12-10] MEDS: Polyethylene Glycol 3350 17 GM Packet PO SCH (09:47)
[2017-12-10] MEDS: Enoxaparin Sodium 30 MG/0.3 ML SYRINGE SC SCH (09:58)
--- NOTE | 2017-12-10 13:56 | PRG ---
DATE OF SERVICE: 12/10/2017 SUBJECTIVE: Ms. Musa is feeling better today. She was started on some Tylenol for her soreness. She states she feels hungry and would like to try some clear liquids. Gastric drainage was 2000 mL for 12 hours. OBJECTIVE: VITAL SIGNS: She is afebrile, heart rate is 108, respirations 20, oxygen saturation 94% on 1 liter, blood pressure 171/76. CARDIOVASCULAR: S1, S2 plus. RESPIRATORY: Normal vesicular breath sounds. ABDOMEN: Soft, nontender, bowel sounds are present but hypoactive. EXTREMITIES: Without cyanosis or clubbing. LABORATORY VALUES: Shows a sodium 142, potassium 4.2, BUN and creatinine is 9 and 0.8. Blood sugars are 122, 120, 129. White count is 11.2, it has been normal in the last 5 days. H&H is 9.6 and 30.3 . IMPRESSION: 1. Recurrent ileus versus obstruction, status post large bowel obstruction requiring sigmoid colon r esection and colostomy placement. 2. Hypertension, improving, controlled. 3. Resolved renal insufficiency. 4. Deconditioning. 5. Gastroesophageal reflux disease. 6. Dyslipidemia. 7. Depression. PLAN: 1. Trial of clamping PEG tube and starting her on a clear liquid diet. 2. Continue Tylenol. 3. Routine laboratory values. 4. Increase activity. 5. Continue IV fluids. 6. If she is unable to tolerate this, we may have to transfer her up the road since she is really no t getting any nutritional intake.
[2017-12-11] MEDS: traMADol HCl 50 MG TAB PO PRN ×2 (01:28→09:17)
[2017-12-11] MEDS: Metoclopramide HCl 10 MG/2 ML VIAL IVP SCH ×4 (05:06→23:33)
[2017-12-11] MEDS: D5 0.9% NS w/ 20 mEq KCl 1,000 ML IV SCH ×2 (05:06→15:41)
[2017-12-11] MEDS: Acetaminophen 500 MG TAB PO PRN (05:17)
[2017-12-11 05:22] LABS: #Basophils 0.1 thou/uL (0.0-0.2); #Lymphocytes 0.6 thou/uL (1.20-3.40); #Monocytes 0.8 thou/uL (0.11-0.59); #Neutrophils 7.9 thou/uL (1.40-6.50); %Basophils 0.6 % (0.0-1.0); %Eosinophils 0.3 % (0.0-10.0); %Lymphocytes 6.8 % (21.0-51.0); %Monocytes 8.1 % (0.0-10.0); %Neutrophils 84.2 % (42.0-75.0); Hemoglobin 8.7 g/dL (12.0-16.0); Mean Corpuscular HGB CONC 32.4 g/dL (32.0-36.0); Mean Corpuscular Hemoglobin 29.1 pg (27.0-31.0); Mean Platelet Volume 5.9 fL (7.4-10.4); Platelet Count 359 thou/uL (130-400); RBC Distribution Width 12.8 % (11.5-14.5); Red Blood Cell (RBC) Count 2.98 mill/uL (4.20-5.40); White Blood Cell (WBC) Count 9.4 thou/uL (4.8-10.8)
[2017-12-11 05:40] LABS: Anion Gap 12 mmol/L (10-20); BUN (Urea Nitrogen) 15 mg/dL (9.8-20.1); Calc. Creatinine Clearance 59 mL/min (70-130); Calcium 8.3 mg/dL (7.8-10.44); Carbon Dioxide 24 mmol/L (23-31); Chloride 111 mmol/L (98-107); Estimated GFR-MDRD 68; Glucose 122 mg/dL (83-110); Potassium 4.3 mmol/L (3.5-5.1); Sodium 143 mmol/L (136-145)
[2017-12-11] MEDS: hydrALAZINE 25 MG TAB PO SCH ×3 (09:15→20:30)
[2017-12-11] MEDS: Enoxaparin Sodium 30 MG/0.3 ML SYRINGE SC SCH (09:15)
[2017-12-11] MEDS: Nitroglycerin 0.1mg/Hour PATCH TD SCH (09:16)
[2017-12-11] MEDS: Metoprolol Tartrate 50 MG TAB PO SCH (09:16)
[2017-12-11] MEDS: Polyethylene Glycol 3350 17 GM Packet PO SCH (09:17)
--- NOTE | 2017-12-11 15:10 | PRG ---
DATE OF SERVICE: 12/11/2017 SUBJECTIVE: Ms. Musa is doing much better. She apparently walked in the hallways with assistance . She sat up for 2 hours. She is passing gas. She is feeling much better, tolerating her clear liq uid diet. OBJECTIVE: VITAL SIGNS: She is afebrile, heart rate 82, respirations 18, oxygen saturation 96%, and blood press ure 137/63. CARDIOVASCULAR SYSTEM: S1, S2 plus. RESPIRATORY SYSTEM: No vesicular breath sounds. ABDOMEN: Soft, nontender, bowel sounds are heard. CENTRAL NERVOUS SYSTEM: Generalized weakness. LABORATORY VALUES: White count is 9.4, H and H is 8.7 and 26.8. Sodium 143, potassium 4.3, BUN and creatinine 15 and 0.80. IMPRESSION: 1. Clinically resolving ileus versus obstruction. 2. Status post surgery for large bowel obstruction, sigmoid colectomy and colostomy placement. 3. Hypertension, much improved. 4. Improving deconditioning. 5. Improved depression. PLAN: 1. Advance to full liquid diet. 2. Continue current medications. 3. Change Tylenol to liquid as she is having trouble swallowing. 4. Continue physical therapy. 5. DVT and stress ulcer prophylaxis. 6. Decubitus precautions. 7. Routine laboratory values. 8. Discussed with in detail. All questions answered.
[2017-12-11] MEDS ORDERED: D5 1/2 NS w/20 mEq KCL 0 ML ONE (23:16)
[2017-12-11] MEDS ORDERED: Dextrose 5 % And 0.9 % NaCl 1,000 ML ONE (23:18)
[2017-12-12] MEDS: traMADol HCl 50 MG TAB PO PRN ×2 (01:02→13:23)
[2017-12-12] MEDS: Metoclopramide HCl 10 MG/2 ML VIAL IVP SCH ×2 (05:18→11:47)
[2017-12-12 05:43] LABS: #Eosinphils 0.1 thou/uL (0.0-0.7); #Lymphocytes 0.7 thou/uL (1.20-3.40); #Monocytes 0.4 thou/uL (0.11-0.59); #Neutrophils 6.5 thou/uL (1.40-6.50); %Basophils 0.3 % (0.0-1.0); %Eosinophils 1.4 % (0.0-10.0); %Lymphocytes 8.5 % (21.0-51.0); %Monocytes 5.5 % (0.0-10.0); %Neutrophils 84.3 % (42.0-75.0); Hemoglobin 8.3 g/dL (12.0-16.0); Mean Corpuscular HGB CONC 30.6 g/dL (32.0-36.0); Mean Corpuscular Hemoglobin 27.9 pg (27.0-31.0); Mean Platelet Volume 5.9 fL (7.4-10.4); Platelet Count 346 thou/uL (130-400); Red Blood Cell (RBC) Count 2.96 mill/uL (4.20-5.40); White Blood Cell (WBC) Count 7.7 thou/uL (4.8-10.8)
[2017-12-12 05:58] LABS: Anion Gap 11 mmol/L (10-20); BUN (Urea Nitrogen) 19 mg/dL (9.8-20.1); Calc. Creatinine Clearance 59 mL/min (70-130); Carbon Dioxide 21 mmol/L (23-31); Chloride 114 mmol/L (98-107); Estimated GFR-MDRD 68; Glucose 136 mg/dL (83-110); Sodium 142 mmol/L (136-145)
[2017-12-12] MEDS: D5 0.9% NS w/ 20 mEq KCl 1,000 ML IV SCH ×3 (06:58→18:28)
[2017-12-12] MEDS: Metoprolol Tartrate 50 MG TAB PO SCH (08:58)
[2017-12-12] MEDS: Enoxaparin Sodium 30 MG/0.3 ML SYRINGE SC SCH (08:58)
[2017-12-12] MEDS: hydrALAZINE 25 MG TAB PO SCH ×3 (08:58→19:53)
[2017-12-12] MEDS: Nitroglycerin 0.1mg/Hour PATCH TD SCH (08:58)
[2017-12-12] MEDS: Polyethylene Glycol 3350 17 GM Packet PO SCH (08:59)
--- NOTE | 2017-12-12 13:34 | PRG ---
DATE OF SERVICE: 12/12/2017 SUBJECTIVE: Ms. Musa is doing well, tolerating her full liquid diet. She is having good output f rom her colostomy. Denies any complaints. OBJECTIVE: VITAL SIGNS: She is afebrile. Heart rate 79, respirations 18, oxygen saturation 94% on 1 liter and blood pressure is 160/74. CARDIOVASCULAR SYSTEM: S1 and S2 plus. RESPIRATORY SYSTEM: Normal vesicular breath sounds. ABDOMEN: Soft and nontender. Bowel sounds heard in all quadrants. EXTREMITIES: Without cyanosis or clubbing. LABORATORY VALUES: White count is 7.7, hemoglobin and hematocrit are 8.3 and 26.9. Sodium 142, pota ssium 4.0, BUN and creatinine are 19 and 0.80. IMPRESSION: 1. Resolved ileus versus partial small-bowel obstruction. 2. Hypertension, improved. 3. Improving deconditioning. 4. Depression, improving. 5. Gastroesophageal reflux disease. 6. Dyslipidemia. PLAN: 1. Stop IV fluids. 2. Switch her Reglan to p.o. 3. Advance diet to bland heart healthy diet. 4. Increase activity. 5. DVT, stress ulcer prophylaxis. 6. Decubitus precautions. 7. Discussed with patient in detail. All questions answered.
[2017-12-12] MEDS: Simethicone Chewable 80 MG TAB PO SCH ×2 (14:41→19:54)
[2017-12-12] MEDS: Metoclopramide 10 MG/10 ML UDCUP PO SCH ×2 (17:10→19:53)
[2017-12-12] MEDS: Ondansetron HCl/PF 4 MG/2 ML Vial SLOW IVP PRN (19:54)
[2017-12-13 05:34] LABS: #Lymphocytes 0.5 thou/uL (1.20-3.40); #Monocytes 0.5 thou/uL (0.11-0.59); #Neutrophils 9.6 thou/uL (1.40-6.50); %Basophils 0.3 % (0.0-1.0); %Eosinophils 0.1 % (0.0-10.0); %Lymphocytes 4.8 % (21.0-51.0); %Monocytes 4.5 % (0.0-10.0); %Neutrophils 90.3 % (42.0-75.0); Hemoglobin 7.7 g/dL (12.0-16.0); Mean Corpuscular HGB CONC 31.6 g/dL (32.0-36.0); Mean Corpuscular Hemoglobin 28.4 pg (27.0-31.0); Mean Corpuscular Volume 89.8 fl (81.0-99.0); Mean Platelet Volume 5.6 fL (7.4-10.4); Platelet Count 344 thou/uL (130-400); RBC Distribution Width 12.6 % (11.5-14.5); Red Blood Cell (RBC) Count 2.71 mill/uL (4.20-5.40); White Blood Cell (WBC) Count 10.7 thou/uL (4.8-10.8)
[2017-12-13 05:45] LABS: Anion Gap 13 mmol/L (10-20); BUN (Urea Nitrogen) 15 mg/dL (9.8-20.1); Calc. Creatinine Clearance 61 mL/min (70-130); Calcium 8.2 mg/dL (7.8-10.44); Carbon Dioxide 20 mmol/L (23-31); Chloride 113 mmol/L (98-107); Estimated GFR-MDRD 71; Glucose 125 mg/dL (83-110); Potassium 3.7 mmol/L (3.5-5.1); Sodium 142 mmol/L (136-145)
[2017-12-13] MEDS: D5 0.9% NS w/ 20 mEq KCl 1,000 ML IV SCH ×3 (06:04→20:18)
--- NOTE | 2017-12-13 09:07 | PRG ---
DATE OF SERVICE: 12/13/2017 SUBJECTIVE: Ms. Musa was doing well until yesterday evening when she started noticing abdominal p ain and her output through her colostomy pretty much stopped. Nursing examined her and did not hear a ny bowel sounds. She had significant pain. Simethicone and Protonix did not help. She was made n.p .o., restarted back on her IV fluids and her G-tube was hooked up to gravity. She continues to have some right upper quadrant pain, but she is status post cholecystectomy. She denies any fever or chil ls. Family is in the room. OBJECTIVE: VITAL SIGNS: She is afebrile, heart rate 92, respirations 20, oxygen saturation 93% on 1 liter, bloo d pressure is 178/75. CARDIOVASCULAR: S1, S2 plus. RESPIRATORY: Normal vesicular breath sounds. ABDOMEN: Soft, distended. Bowel sounds are not heard, nontender. Colostomy bag is empty. EXTREMITIES: Without cyanosis or clubbing. LABORATORY VALUES: White count is 10.7, H&H is 7.7 and 24.3. Sodium 142, potassium 3.7, BUN and cre atinine 15 and 0.77. IMPRESSION: 1. Recurrent episodes of ileus versus partial small-bowel obstruction. 2. Recent large bowel obstruction, status post sigmoid colectomy and colostomy placement. 3. Hypertension, reasonable control. 4. Gastroesophageal reflux disease. 5. Dyslipidemia. 6. Depression. PLAN: 1. Continue n.p.o. 2. G-tube to gravity. 3. IV fluids. 4. Encourage the patient to get up and move. 5. We will check plain film of her abdomen. 6. Cancel right upper quadrant ultrasound, I had ordered it not remembering that she had a cholecyst ectomy. 7. I discussed with patient and daughter and in detail. All questions answered. 8. Dr. Anup Richards is storage consultant this weekend.
[2017-12-13] MEDS: Enoxaparin Sodium 30 MG/0.3 ML SYRINGE SC SCH (10:15)
[2017-12-13] MEDS: Labetalol HCl 100 MG/20 ML VIAL SLOW IVP PRN (10:20)
[2017-12-13] MEDS: hydrALAZINE 25 MG TAB PO SCH (10:23)
[2017-12-13] MEDS: Metoclopramide HCl 10 MG/2 ML VIAL IVP SCH ×3 (10:25→22:39)
[2017-12-13] MEDS: Nitroglycerin 0.1mg/Hour PATCH TD SCH (10:27)
[2017-12-13] MEDS: Metoprolol Tartrate 50 MG TAB PO SCH (10:28)
[2017-12-13] MEDS: Simethicone Chewable 80 MG TAB PO SCH ×3 (10:29→20:19)
[2017-12-13] MEDS: Polyethylene Glycol 3350 17 GM Packet PO SCH (10:29)
[2017-12-13] MEDS: Metoclopramide 10 MG/10 ML UDCUP PO SCH (11:31)
[2017-12-13] MEDS: hydrALAZINE 20 MG/ML VIAL SLOW IVP PRN (11:32)
--- NOTE | 2017-12-13 11:47 | RAD ---
ABDOMEN 1 VIEW: Date: 12/13/17 HISTORY: 82-year-old female with abdominal pain and history of ileus. COMPARISON: 12/07/17. FINDINGS: Left parasagittal skin rehana. Multilevel vertebroplasty changes. Some scattered gas, mostly in the colon. Atherosclerosis of the aorta with some ectasia and calcific changes. Left-sided inferior ostom y site. IMPRESSION: Scattered gas and minimal fecal material in the colon. No overt large or small bowel obstruction. POS: [facility]
[2017-12-14] MEDS: Metoclopramide HCl 10 MG/2 ML VIAL IVP SCH ×4 (04:03→20:03)
[2017-12-14 05:44] LABS: #Lymphocytes 0.5 thou/uL (1.20-3.40); #Monocytes 0.6 thou/uL (0.11-0.59); #Neutrophils 7.3 thou/uL (1.40-6.50); %Basophils 0.4 % (0.0-1.0); %Eosinophils 0.2 % (0.0-10.0); %Lymphocytes 5.3 % (21.0-51.0); %Monocytes 7.3 % (0.0-10.0); %Neutrophils 86.8 % (42.0-75.0); Hemoglobin 7.4 g/dL (12.0-16.0); Mean Corpuscular HGB CONC 31.6 g/dL (32.0-36.0); Mean Corpuscular Hemoglobin 28.2 pg (27.0-31.0); Mean Corpuscular Volume 89.3 fl (81.0-99.0); Mean Platelet Volume 5.7 fL (7.4-10.4); Platelet Count 327 thou/uL (130-400); RBC Distribution Width 13.1 % (11.5-14.5); Red Blood Cell (RBC) Count 2.62 mill/uL (4.20-5.40); White Blood Cell (WBC) Count 8.4 thou/uL (4.8-10.8)
[2017-12-14] MEDS: D5 0.9% NS w/ 20 mEq KCl 1,000 ML IV SCH ×2 (05:46→17:37)
[2017-12-14 05:47] LABS: Anion Gap 13 mmol/L (10-20); BUN (Urea Nitrogen) 14 mg/dL (9.8-20.1); Calc. Creatinine Clearance 61 mL/min (70-130); Calcium 8.4 mg/dL (7.8-10.44); Carbon Dioxide 28 mmol/L (23-31); Chloride 111 mmol/L (98-107); Estimated GFR-MDRD 71; Glucose 129 mg/dL (83-110); Potassium 3.5 mmol/L (3.5-5.1); Sodium 148 mmol/L (136-145)
[2017-12-14] MEDS: Metoprolol Tartrate 50 MG TAB PO SCH (08:33)
[2017-12-14] MEDS: Enoxaparin Sodium 30 MG/0.3 ML SYRINGE SC SCH (08:33)
[2017-12-14] MEDS: Nitroglycerin 0.1mg/Hour PATCH TD SCH (08:34)
[2017-12-14] MEDS: Pantoprazole 40 MG VIAL IVP SCH (08:34)
[2017-12-14] MEDS: Polyethylene Glycol 3350 17 GM Packet PO SCH (08:34)
[2017-12-14] MEDS: Simethicone Chewable 80 MG TAB PO SCH ×3 (08:34→19:45)
[2017-12-14] MEDS: hydrALAZINE 20 MG/ML VIAL SLOW IVP PRN (14:35)
[2017-12-14] MEDS: Labetalol HCl 100 MG/20 ML VIAL SLOW IVP PRN (15:38)
[2017-12-14] MEDS ORDERED: ALPRAZolam 0.25 MG TAB PER TUBE SCH (16:00)
[2017-12-15] MEDS: Metoclopramide HCl 10 MG/2 ML VIAL IVP SCH ×2 (02:13→09:00)
[2017-12-15] MEDS: D5 0.9% NS w/ 20 mEq KCl 1,000 ML IV SCH ×3 (02:17→20:58)
[2017-12-15 05:45] LABS: Anion Gap 11 mmol/L (10-20); BUN (Urea Nitrogen) 12 mg/dL (9.8-20.1); Calc. Creatinine Clearance 62 mL/min (70-130); Calcium 8.4 mg/dL (7.8-10.44); Carbon Dioxide 26 mmol/L (23-31); Chloride 115 mmol/L (98-107); Estimated GFR-MDRD 74; Glucose 125 mg/dL (83-110); Magnesium 1.6 mg/dL (1.6-2.6); Potassium 3.8 mmol/L (3.5-5.1); Sodium 148 mmol/L (136-145)
[2017-12-15] MEDS: Pantoprazole 40 MG VIAL IVP SCH (08:40)
[2017-12-15] MEDS: Nitroglycerin 0.1mg/Hour PATCH TD SCH (08:40)
[2017-12-15] MEDS: Enoxaparin Sodium 30 MG/0.3 ML SYRINGE SC SCH (08:40)
[2017-12-15] MEDS: hydrALAZINE 20 MG/ML VIAL SLOW IVP PRN (08:42)
[2017-12-15] MEDS: Simethicone Chewable 80 MG TAB PO SCH ×4 (08:43→20:06)
[2017-12-15] MEDS: Polyethylene Glycol 3350 17 GM Packet PO SCH (08:43)
[2017-12-15] MEDS: Metoprolol Tartrate 50 MG TAB PO SCH ×2 (08:43→13:28)
[2017-12-15] MEDS: Metoclopramide HCl 10 MG TAB PO SCH ×3 (10:53→20:05)
--- NOTE | 2017-12-15 11:21 | PRG ---
DATE OF SERVICE: 12/14/2017 SUBJECTIVE: The patient is lying in bed, in no distress at rest. No abdominal pain or nausea and vo miting with a G-tube only to gravity, but with n.p.o. status. OBJECTIVE: VITAL SIGNS: Shows her blood pressure is 188/80, pulse 106, temperature 97, respirations 25, O2 satu ration is 95%. LUNGS: Clear. CARDIAC: Examination shows regular rhythm. ABDOMEN: Soft with bowel sounds present and minimally tender. LABORATORY DATA: White count 8400, hematocrit 23, hemoglobin down to 7.4. Sodium is 148, potassium 3.5, chloride 111, bicarbonate 28, BUN 14, creatinine 0.77, glucose 129. ASSESSMENT: 1. Resolving ileus, still mild tenderness and will continue on intravenous fluids one more day. 2. Tachycardia and elevated blood pressure, possibly due to anxiety, will treat with alprazolam down the G-tube and monitor response, but will continue on Catapres patch, hydralazine IV p.r.n. 3. Depression and anxiety. 4. Gastroesophageal reflux. 5. Recent partial sigmoid colectomy and colostomy secondary to large bowel obstruction. PLAN: Alprazolam 0.25 per G-tube, continue IV fluids. Abdominal film showed no evidence of ileus an d will maintain IV fluids for 1 more day and hopefully start on clear liquids tomorrow.
--- NOTE | 2017-12-15 12:18 | PRG ---
DATE OF SERVICE: 12/15/2017 SUBJECTIVE: The patient states she feels better, wants to try and get up today. States she did have a panic attack yesterday, but is ready to start taking liquids down the G-tube. OBJECTIVE: VITAL SIGNS: Blood pressure is up to 221/97, temperature is 98, pulse 100, respirations 26, O2 satur ation is 95%. LUNGS: Clear. CARDIAC: Regular rhythm. ABDOMEN: Soft, nontender. There are bowel sounds present. SKIN AND EXTREMITIES: Display no edema, clubbing, or cyanosis. LABORATORY DATA: Laboratories yesterday showed white count 8400; hemoglobin stable, slowly decreased 7.4; hematocrit 23. Electrolytes today showed a sodium 148, potassium 3.8, chloride 115, bicarbonat e 26, BUN 12, creatinine 0.75, glucose 125. ASSESSMENT: 1. Resolving ileus, postop partial colectomy for obstruction. 2. Severe anxiety. 3. Significant hypertension, uncontrolled on IV med. 4. Gastroesophageal reflux. PLAN: Restart clear liquids. Continue IV fluids. Restart oral meds through G-tube of metoprolol 10 0 mg daily, Benicar 40 mg daily, sertraline 25 mg nightly, alprazolam 0.25 per tube every 6 hours as needed, and Reglan 10 mg p.o. per tube q.6 hours. Start on clear liquids. Repeat blood pressure and electrolytes this afternoon, up in the chair today.
[2017-12-15] MEDS: ALPRAZolam 0.25 MG TAB PO PRN (20:11)
[2017-12-15] MEDS: Labetalol HCl 100 MG/20 ML VIAL SLOW IVP PRN (20:57)
[2017-12-16 06:02] LABS: Anion Gap 12 mmol/L (10-20); BUN (Urea Nitrogen) 9 mg/dL (9.8-20.1); Calc. Creatinine Clearance 65 mL/min (70-130); Calcium 8.4 mg/dL (7.8-10.44); Carbon Dioxide 23 mmol/L (23-31); Chloride 113 mmol/L (98-107); Estimated GFR-MDRD 78; Glucose 121 mg/dL (83-110); Potassium 3.6 mmol/L (3.5-5.1); Sodium 144 mmol/L (136-145)
[2017-12-16] MEDS: Metoclopramide HCl 10 MG TAB PO SCH ×4 (08:29→20:27)
[2017-12-16] MEDS: Enoxaparin Sodium 30 MG/0.3 ML SYRINGE SC SCH (09:21)
[2017-12-16] MEDS: Nitroglycerin 0.1mg/Hour PATCH TD SCH (09:22)
[2017-12-16] MEDS: Metoprolol Tartrate 50 MG TAB PO SCH (09:22)
[2017-12-16] MEDS: Pantoprazole 40 MG VIAL IVP SCH (09:23)
[2017-12-16] MEDS: Polyethylene Glycol 3350 17 GM Packet PO SCH (09:23)
[2017-12-16] MEDS: Simethicone Chewable 80 MG TAB PO SCH (09:23)
[2017-12-16] MEDS: D5 0.9% NS w/ 20 mEq KCl 1,000 ML IV SCH ×2 (10:45→20:26)
[2017-12-16] MEDS: Labetalol HCl 100 MG/20 ML VIAL SLOW IVP PRN (12:23)
[2017-12-16] MEDS ORDERED: Simethicone Chewable 80 MG TAB PO PRN (13:20)
--- NOTE | 2017-12-16 13:23 | PRG ---
DATE OF SERVICE: 12/16/2017 SUBJECTIVE: Ms. Musa is doing well, tolerating her clear liquid diet. Denies any concerns or que stions. Daughter and are in the room. I advised her that she will advance her diet, but she also needs to get up and move around. I told her I do not want her to be lying in bed during the da ytime. OBJECTIVE: VITAL SIGNS: She is afebrile, heart rate 87, respirations 24, oxygen saturation 90 on room air, bloo d pressure 181/83. CARDIOVASCULAR: S1, S2 plus. RESPIRATORY: Normal vesicular breath sounds. ABDOMEN: Soft. Bowel sounds heard in all quadrants. EXTREMITIES: Without cyanosis or clubbing. CENTRAL NERVOUS SYSTEM: Generalized weakness. LABORATORY VALUES: Sodium 144, potassium 3.6, BUN and creatinine is 9 and 0.71. IMPRESSION: 1. Resolving ileus. 2. Hypertension, fluctuating control. 3. Deconditioning. 4. Depression and anxiety. 5. Gastroesophageal reflux disease. 6. Dyslipidemia. PLAN: 1. Advance to full liquid diet. 2. Have her up in chair for at least 4 hours daily. 3. Continue physical therapy. 4. Nutritional support. 5. DVT and stress ulcer prophylaxis. 6. Decubitus precautions. 7. Routine laboratory values. 8. She states that she takes some medication in the morning, which is 2 pills she has to chew and sh e hates it. I will discuss with nursing to find out what that is.
[2017-12-16] MEDS: cloNIDine 0.3mg/24 Hour PATCH TD SCH (15:47)
[2017-12-16] MEDS: traMADol HCl 50 MG TAB PO PRN (15:47)
[2017-12-17] MEDS: traMADol HCl 50 MG TAB PO PRN ×4 (01:27→21:27)
[2017-12-17] MEDS: D5 0.9% NS w/ 20 mEq KCl 1,000 ML IV SCH (05:36)
[2017-12-17] MEDS: Metoclopramide HCl 10 MG TAB PO SCH ×4 (08:14→20:04)
[2017-12-17] MEDS: Enoxaparin Sodium 30 MG/0.3 ML SYRINGE SC SCH (08:14)
[2017-12-17] MEDS: Metoprolol Tartrate 50 MG TAB PO SCH (08:15)
[2017-12-17] MEDS: Nitroglycerin 0.1mg/Hour PATCH TD SCH (08:15)
[2017-12-17] MEDS: Pantoprazole 40 MG VIAL IVP SCH (08:16)
[2017-12-17] MEDS: Polyethylene Glycol 3350 17 GM Packet PO SCH (08:32)
--- NOTE | 2017-12-17 13:51 | PRG ---
DATE OF SERVICE: 12/17/2017 SUBJECTIVE: Ms. Musa is doing well, tolerating her full liquid diet. Apparently sat up for 2 alyson rs. She would like to try some eggs and some mashed potatoes. The plan is to advance her to a soft diet. Stop her IV fluids. I again encouraged her to make sure she continues to stay active. Her st aples were removed yesterday. Family is in the room, no concerns or questions. OBJECTIVE: VITAL SIGNS: She is afebrile, heart rate 98, respirations 24, oxygen saturation 94%, blood pressure 197/89. CARDIOVASCULAR: S1, S2 plus. RESPIRATORY: Normal vesicular breath sounds. ABDOMEN: Good bowel sounds, nontender. EXTREMITIES: Without cyanosis or clubbing. IMPRESSION: 1. Resolving small-bowel obstruction versus postoperative ileus. 2. Hypertension, not well controlled. 3. Dyslipidemia. 4. Gastroesophageal reflux disease. 5. Improving deconditioning. PLAN: 1. Stop IV fluids. 2. Advance to soft diet. 3. Adjust oral blood pressure medications. 4. Continue IV Reglan. 5. Increase activity. 6. Recheck laboratory values. 7. I discussed with the patient and family in detail and all questions answered.
[2017-12-17] MEDS: hydrALAZINE 25 MG TAB PO SCH ×2 (15:14→20:03)
[2017-12-18] MEDS: ALPRAZolam 0.25 MG TAB PO PRN (00:30)
[2017-12-18 05:38] LABS: #Eosinphils 0.3 thou/uL (0.0-0.7); #Lymphocytes 0.7 thou/uL (1.20-3.40); #Monocytes 0.4 thou/uL (0.11-0.59); #Neutrophils 4.5 thou/uL (1.40-6.50); %Basophils 0.5 % (0.0-1.0); %Eosinophils 4.3 % (0.0-10.0); %Lymphocytes 12.2 % (21.0-51.0); %Monocytes 7.2 % (0.0-10.0); %Neutrophils 75.7 % (42.0-75.0); Hemoglobin 7.1 g/dL (12.0-16.0); Mean Corpuscular HGB CONC 31.3 g/dL (32.0-36.0); Mean Corpuscular Hemoglobin 27.7 pg (27.0-31.0); Mean Corpuscular Volume 88.4 fl (81.0-99.0); Mean Platelet Volume 6.2 fL (7.4-10.4); Platelet Count 264 thou/uL (130-400); RBC Distribution Width 13.3 % (11.5-14.5); Red Blood Cell (RBC) Count 2.55 mill/uL (4.20-5.40)
[2017-12-18 05:48] LABS: Anion Gap 10 mmol/L (10-20); BUN (Urea Nitrogen) 9 mg/dL (9.8-20.1); Calc. Creatinine Clearance 63 mL/min (70-130); Calcium 8.3 mg/dL (7.8-10.44); Carbon Dioxide 23 mmol/L (23-31); Chloride 108 mmol/L (98-107); Estimated GFR-MDRD 76; Glucose 99 mg/dL (83-110); Potassium 3.4 mmol/L (3.5-5.1); Sodium 138 mmol/L (136-145)
[2017-12-18] MEDS: Pantoprazole 40 MG VIAL IVP SCH (08:52)
[2017-12-18] MEDS: hydrALAZINE 25 MG TAB PO SCH ×3 (08:53→20:26)
[2017-12-18] MEDS: Metoclopramide HCl 10 MG TAB PO SCH ×4 (08:53→20:27)
[2017-12-18] MEDS: Metoprolol Tartrate 50 MG TAB PO SCH (08:53)
[2017-12-18] MEDS: Polyethylene Glycol 3350 17 GM Packet PO SCH (08:55)
[2017-12-18] MEDS: Nitroglycerin 0.1mg/Hour PATCH TD SCH (08:55)
[2017-12-18] MEDS: Enoxaparin Sodium 30 MG/0.3 ML SYRINGE SC SCH (08:55)
--- NOTE | 2017-12-18 13:25 | PRG ---
DATE OF SERVICE: 12/18/2017 SUBJECTIVE: Ms. Musa is doing well except some abdominal soreness. She denies any fever or chill s. Denies any chest pain or shortness of breath. She apparently is just not feeling hungry. She is having good output through her colostomy. Her daughter and spouse are in the room. She is now on a regular diet. OBJECTIVE: VITAL SIGNS: She is afebrile, heart rate is 90, respirations 18, oxygen saturation 93% on room air, blood pressure 182/82. CARDIOVASCULAR: S1, S2 plus. RESPIRATORY: Normal vesicular breath sounds. ABDOMEN: Soft, minimal distention. Bowel sounds heard in all quadrants. Nontender. Incision is he althy. PEG tube is healthy. EXTREMITIES: Without cyanosis or clubbing. CENTRAL NERVOUS SYSTEM: Generalized weakness. LABORATORY VALUES: White count of 6.0, H&H is 7.1 and 22.5. Sodium 138, potassium slightly low at 3 .4, BUN and creatinine is 9 and 0.73. IMPRESSION: 1. Resolved ileus versus partial small-bowel obstruction. 2. Status post large bowel obstruction requiring sigmoid colectomy and colostomy placement. 3. Hiatal hernia requiring PEG tube for anchoring. 4. Hypertension, improving control. 5. Deconditioning. 6. Dyslipidemia. 7. Gastroesophageal reflux disease. 8. Depression. 9. Hypokalemia. PLAN: 1. Replace potassium. 2. I advised the patient to be up in her chair for all her meals. 3. Encourage p.o. intake. 4. Physical therapy. 5. DVT and stress ulcer prophylaxis. 6. Decubitus precautions. 7. Increase hydralazine. 8. She has an appointment with Dr. Hull tomorrow. 9. I discussed with the patient and family in detail. All questions answered.
[2017-12-19] MEDS: Ondansetron ODT 4 MG TAB PO PRN (02:30)
[2017-12-19] MEDS: traMADol HCl 50 MG TAB PO PRN (09:35)
[2017-12-19] MEDS: Pantoprazole 40 MG VIAL IVP SCH (09:36)
[2017-12-19] MEDS: Nitroglycerin 0.1mg/Hour PATCH TD SCH (09:37)
[2017-12-19] MEDS: Metoprolol Tartrate 50 MG TAB PO SCH (09:37)
[2017-12-19] MEDS: hydrALAZINE 25 MG TAB PO SCH ×3 (09:37→20:27)
[2017-12-19] MEDS: Enoxaparin Sodium 30 MG/0.3 ML SYRINGE SC SCH (09:38)
[2017-12-19] MEDS: Metoclopramide HCl 10 MG TAB PO SCH ×4 (09:38→20:28)
[2017-12-19] MEDS: Polyethylene Glycol 3350 17 GM Packet PO SCH (12:53)
[2017-12-19] MEDS ORDERED: Digoxin 0.5 MG/2 ML AMP SLOW IVP SCH (14:00)
[2017-12-19] MEDS: D5 0.9% NS w/ 20 mEq KCl 1,000 ML IV SCH ×2 (14:14→23:43)
[2017-12-19 14:16] LABS: #Basophils 0.1 thou/uL (0.0-0.2); #Lymphocytes 0.6 thou/uL (1.20-3.40); #Monocytes 0.6 thou/uL (0.11-0.59); #Neutrophils 8.2 thou/uL (1.40-6.50); %Basophils 0.6 % (0.0-1.0); %Eosinophils 0.3 % (0.0-10.0); %Lymphocytes 5.8 % (21.0-51.0); %Monocytes 6.4 % (0.0-10.0); Hemoglobin 8.5 g/dL (12.0-16.0); Mean Corpuscular HGB CONC 31.8 g/dL (32.0-36.0); Mean Corpuscular Hemoglobin 27.8 pg (27.0-31.0); Mean Corpuscular Volume 87.3 fl (81.0-99.0); Mean Platelet Volume 6.5 fL (7.4-10.4); Platelet Count 343 thou/uL (130-400); RBC Distribution Width 14.1 % (11.5-14.5); Red Blood Cell (RBC) Count 3.05 mill/uL (4.20-5.40); White Blood Cell (WBC) Count 9.5 thou/uL (4.8-10.8)
[2017-12-19 14:28] LABS: Anion Gap 14 mmol/L (10-20); BUN (Urea Nitrogen) 13 mg/dL (9.8-20.1); Calc. Creatinine Clearance 56 mL/min (70-130); Calcium 8.5 mg/dL (7.8-10.44); Carbon Dioxide 21 mmol/L (23-31); Chloride 104 mmol/L (98-107); Estimated GFR-MDRD 65; Glucose 132 mg/dL (83-110); Potassium 3.4 mmol/L (3.5-5.1); Sodium 136 mmol/L (136-145)
[2017-12-19] MEDS ORDERED: Digoxin 0.5 MG/2 ML AMP ONE (15:04)
[2017-12-19] MEDS ORDERED: Digoxin 0.5 MG/2 ML AMP SLOW IVP PRN (15:05)
--- NOTE | 2017-12-19 19:50 | PRG ---
DATE OF SERVICE: 12/19/2017 SUBJECTIVE: Ms. Musa is feeling weak. She did eat half a hamburger according to the family. Den ies any chest pain. She does state that she feels lightheaded. On examination, she does have an irr egular heartbeat. Did an EKG and it did confirms atrial fibrillation with RVR, heart rate of 150. A dvised nursing to start her on IV digoxin 0.25 mg now and then repeat it in 30 minutes if heart rate is still greater than 120. I also advised the family that if her heart rate does not come down with the second dose of digoxin, then she will need to be transferred to [place] because she will need to be on IV Cardizem. Also started her on some IV fluids and did a stat CBC and BMP. Stat CBC shows an i mprovement in her hemoglobin of 8.5 and 26.6. Chemistry shows a sodium of 136, potassium 3.4, BUN an d creatinine are 13 and 0.83. OBJECTIVE: CARDIOVASCULAR SYSTEM: Irregularly irregular. RESPIRATORY SYSTEM: Normal vesicular breath sounds. ABDOMEN: Soft, nontender, bowel sounds heard in all quadrants. EXTREMITIES: Without cyanosis or clubbing. CENTRAL NERVOUS SYSTEM: Generalized weakness. LABORATORY DATA: TSH is also normal at 0.7488. IMPRESSION: 1. Possible new onset atrial fibrillation with rapid ventricular response. She has been on metoprol ol in the past, but she is not able to give me a good history. I reviewed her old hospital stay and I did not see any documentation of atrial fibrillation. 2. Hypertension. It was 147/93. 3. Dyslipidemia. 4. Gastroesophageal reflux disease. 5. Resolved ileus. PLAN 1. We will hold off on anticoagulation at this point due to recent major abdominal surgery. She is on Lovenox. 2. IV fluids with D5 normal saline with 20 mEq of KCl at 100 mL. 3. Digoxin 0.25 mg p.o. daily. 4. Ensure t.i.d. 5. Continue other medications. 6. Discussed with family in detail and all questions answered. 7. Monitor heart rate and family is aware that if it gets worse again, she will be transferred.
[2017-12-20] MEDS: traMADol HCl 50 MG TAB PO PRN ×3 (03:31→17:40)
[2017-12-20 05:38] LABS: #Eosinphils 0.1 thou/uL (0.0-0.7); #Lymphocytes 0.4 thou/uL (1.20-3.40); #Monocytes 0.6 thou/uL (0.11-0.59); #Neutrophils 7.4 thou/uL (1.40-6.50); %Basophils 0.4 % (0.0-1.0); %Eosinophils 1.1 % (0.0-10.0); %Lymphocytes 4.8 % (21.0-51.0); %Monocytes 7.4 % (0.0-10.0); %Neutrophils 86.4 % (42.0-75.0); Hemoglobin 7.6 g/dL (12.0-16.0); Mean Corpuscular HGB CONC 31.3 g/dL (32.0-36.0); Mean Corpuscular Hemoglobin 27.5 pg (27.0-31.0); Mean Corpuscular Volume 87.7 fl (81.0-99.0); Mean Platelet Volume 6.4 fL (7.4-10.4); Platelet Count 292 thou/uL (130-400); RBC Distribution Width 13.4 % (11.5-14.5); Red Blood Cell (RBC) Count 2.76 mill/uL (4.20-5.40); White Blood Cell (WBC) Count 8.6 thou/uL (4.8-10.8)
[2017-12-20 05:55] LABS: Anion Gap 11 mmol/L (10-20); BUN (Urea Nitrogen) 13 mg/dL (9.8-20.1); Calc. Creatinine Clearance 58 mL/min (70-130); Carbon Dioxide 22 mmol/L (23-31); Chloride 108 mmol/L (98-107); Estimated GFR-MDRD 69; Glucose 145 mg/dL (83-110); Potassium 3.6 mmol/L (3.5-5.1); Sodium 137 mmol/L (136-145)
[2017-12-20] MEDS: Metoclopramide HCl 10 MG TAB PO SCH ×4 (08:49→20:46)
[2017-12-20] MEDS: D5 0.9% NS w/ 20 mEq KCl 1,000 ML IV SCH ×2 (09:18→19:01)
[2017-12-20] MEDS: Pantoprazole 40 MG VIAL IVP SCH (09:19)
[2017-12-20] MEDS: Enoxaparin Sodium 30 MG/0.3 ML SYRINGE SC SCH (09:19)
[2017-12-20] MEDS: Nitroglycerin 0.1mg/Hour PATCH TD SCH (09:19)
[2017-12-20] MEDS: hydrALAZINE 25 MG TAB PO SCH ×3 (09:20→20:45)
[2017-12-20] MEDS: Metoprolol Tartrate 50 MG TAB PO SCH (09:20)
[2017-12-20] MEDS: Polyethylene Glycol 3350 17 GM Packet PO SCH (13:48)
[2017-12-20] MEDS: Ondansetron HCl/PF 4 MG/2 ML Vial SLOW IVP PRN (17:00)
--- NOTE | 2017-12-20 20:47 | PRG ---
DATE OF SERVICE: 12/20/2017 SUBJECTIVE: Ms. Musa is doing the same. She is hardly eating anything. She apparently is not ap parently doing whole lot with nursing. I am not sure if she did much with therapy either reviewing t he therapy note from this morning, she was assessed again this morning, she apparently just did some sit to stand and did not walk. PHYSICAL EXAMINATION: VITAL SIGNS: She is afebrile, heart rate 73, respirations 18, oxygen saturation 91% on room air, and blood pressure is 156/64. CARDIOVASCULAR: S1 and S2 plus. RESPIRATORY: Vesicular breath sounds heard in all lung wagoner. ABDOMEN: Soft, nontender, bowel sounds are heard. EXTREMITIES: Without cyanosis or clubbing. LABORATORY VALUES: White count is 8.6, H&H is 7.6 and 24.2. Sodium 137, potassium 3.6, BUN and crea tinine is 13 and 0.79. IMPRESSION: 1. New onset atrial fibrillation, now rate controlled with digoxin. 2. Hypertension, well controlled. 3. Ileus, resolved. 4. Significant malnutrition with decreased p.o. intake. 5. Significant deconditioning. Patient really not motivated to do very much with therapy. 6. Dyslipidemia. 7. Gastroesophageal reflux disease. 8. Degenerative joint disease. PLAN: 1. Continue digoxin. 2. Check EKG in the morning. 3. Again reinforced the need for her to get up and move around and try to eat. 4. Add half a can of Jevity 1.2 if her p.o. intake is less than 50% with each meal. 5. Continue IV fluids. 6. DVT and stress ulcer prophylaxis. 7. No family at bedside. 8. Discussed with nursing.
[2017-12-21] MEDS: traMADol HCl 50 MG TAB PO PRN ×3 (00:18→19:41)
[2017-12-21] MEDS: ALPRAZolam 0.25 MG TAB PO PRN (00:19)
[2017-12-21] MEDS: D5 0.9% NS w/ 20 mEq KCl 1,000 ML IV SCH (04:35)
[2017-12-21 05:35] LABS: #Eosinphils 0.1 thou/uL (0.0-0.7); #Lymphocytes 0.6 thou/uL (1.20-3.40); #Monocytes 0.5 thou/uL (0.11-0.59); #Neutrophils 5.4 thou/uL (1.40-6.50); %Basophils 0.3 % (0.0-1.0); %Lymphocytes 8.7 % (21.0-51.0); %Monocytes 8.1 % (0.0-10.0); %Neutrophils 80.9 % (42.0-75.0); Hemoglobin 7.2 g/dL (12.0-16.0); Mean Corpuscular HGB CONC 31.3 g/dL (32.0-36.0); Mean Corpuscular Hemoglobin 27.4 pg (27.0-31.0); Mean Corpuscular Volume 87.5 fl (81.0-99.0); Mean Platelet Volume 6.1 fL (7.4-10.4); Platelet Count 276 thou/uL (130-400); RBC Distribution Width 13.7 % (11.5-14.5); Red Blood Cell (RBC) Count 2.61 mill/uL (4.20-5.40); White Blood Cell (WBC) Count 6.7 thou/uL (4.8-10.8)
[2017-12-21 05:51] LABS: Anion Gap 8 mmol/L (10-20); BUN (Urea Nitrogen) 11 mg/dL (9.8-20.1); Calc. Creatinine Clearance 62 mL/min (70-130); Calcium 7.9 mg/dL (7.8-10.44); Carbon Dioxide 22 mmol/L (23-31); Chloride 108 mmol/L (98-107); Estimated GFR-MDRD 75; Glucose 128 mg/dL (83-110); Potassium 3.7 mmol/L (3.5-5.1); Sodium 134 mmol/L (136-145)
[2017-12-21] MEDS: Metoclopramide HCl 10 MG TAB PO SCH ×4 (08:33→21:15)
[2017-12-21] MEDS: Digoxin 0.125 MG TAB PO SCH (08:33)
[2017-12-21] MEDS: Metoprolol Tartrate 50 MG TAB PO SCH (08:35)
[2017-12-21] MEDS: Enoxaparin Sodium 30 MG/0.3 ML SYRINGE SC SCH (08:35)
[2017-12-21] MEDS: hydrALAZINE 25 MG TAB PO SCH ×3 (08:35→19:39)
[2017-12-21] MEDS: Pantoprazole 40 MG VIAL IVP SCH (08:36)
[2017-12-21] MEDS: Nitroglycerin 0.1mg/Hour PATCH TD SCH (08:36)
[2017-12-21] MEDS: Polyethylene Glycol 3350 17 GM Packet PO SCH (08:37)
--- NOTE | 2017-12-21 11:37 | PRG ---
DATE OF SERVICE: 12/21/2017 SUBJECTIVE: Ms. Musa is more awake and states that she feels better today. I again reinforced th e need for her to get more active and try to eat more. I advised her that I am going to give her 1 u nit of blood even though her hemoglobin is 7.1. Given her paleness and her weakness, I am feeling th at it may help give her a little bit more energy to do more. I also informed her that I have okayed her using her home Voltaren gel for her arthritis. OBJECTIVE: VITAL SIGNS: She is afebrile, heart rate is 85, respirations 20, oxygen saturation 95% on 1 liter, b lood pressure 189/81. CARDIOVASCULAR: S1, S2 plus. RESPIRATORY: Normal vesicular breath sounds. ABDOMEN: Soft. Minimal tenderness over the colostomy site. Bowel sounds heard in all quadrants. EXTREMITIES: Without cyanosis or clubbing. CENTRAL NERVOUS SYSTEM: Significant deconditioning. LABORATORY VALUES: White count of 6.7, H&H is 7.2 and 22.8. Chemistry shows a sodium 134, potassium 3.7, BUN and creatinine is 11 and 0.74. IMPRESSION: 1. Atrial fibrillation, it looks like she is in sinus rhythm. I have ordered an EKG for this rima g, it has not been done yet. 2. Resolved ileus. 3. Significant deconditioning. 4. Poor p.o. intake. 5. Hypertension, fluctuating, control. 6. Dyslipidemia. 7. Gastroesophageal reflux disease. 8. History of hiatal hernia. PLAN: 1. We again reinforced the need for her to move around and get more active as well as eat better. 2. Continue tube feedings if her p.o. intake is less than 50%. 3. One unit of packed cell even though her hemoglobin is 7.2. She is pretty pale and she states she is significantly weak and I am trying this to see if it gives her any more energy since she is hardl y doing anything. 4. Continue current medications. 5. Stop IV fluids. 6. Discussed with her who just walked in and again, reinforced the need for increased activi ty and increase p.o. intake. 7. Recheck laboratory values in the morning. 8. Continue digoxin. We will hold off on any anticoagulation at this point since she seems to be ba ck in sinus rhythm.
[2017-12-21] MEDS: Labetalol HCl 100 MG/20 ML VIAL SLOW IVP PRN (14:44)
[2017-12-22] MEDS: ALPRAZolam 0.25 MG TAB PO PRN ×2 (00:02→21:57)
[2017-12-22] MEDS: traMADol HCl 50 MG TAB PO PRN ×2 (02:26→12:37)
[2017-12-22 05:29] LABS: #Eosinphils 0.1 thou/uL (0.0-0.7); #Lymphocytes 0.7 thou/uL (1.20-3.40); #Monocytes 0.5 thou/uL (0.11-0.59); #Neutrophils 7.1 thou/uL (1.40-6.50); %Basophils 0.4 % (0.0-1.0); %Eosinophils 1.8 % (0.0-10.0); %Lymphocytes 8.3 % (21.0-51.0); %Neutrophils 83.5 % (42.0-75.0); Hemoglobin 8.8 g/dL (12.0-16.0); Mean Corpuscular HGB CONC 31.2 g/dL (32.0-36.0); Mean Corpuscular Hemoglobin 27.1 pg (27.0-31.0); Mean Platelet Volume 6.1 fL (7.4-10.4); Platelet Count 364 thou/uL (130-400); RBC Distribution Width 13.4 % (11.5-14.5); Red Blood Cell (RBC) Count 3.24 mill/uL (4.20-5.40); White Blood Cell (WBC) Count 8.5 thou/uL (4.8-10.8)
[2017-12-22] MEDS: Labetalol HCl 100 MG/20 ML VIAL SLOW IVP PRN (05:38)
[2017-12-22] MEDS: Metoclopramide HCl 10 MG TAB PO SCH ×4 (08:57→20:53)
[2017-12-22] MEDS: hydrALAZINE 25 MG TAB PO SCH ×3 (08:58→20:52)
[2017-12-22] MEDS: Digoxin 0.125 MG TAB PO SCH (08:58)
[2017-12-22] MEDS: Enoxaparin Sodium 30 MG/0.3 ML SYRINGE SC SCH (08:58)
[2017-12-22] MEDS: Metoprolol Tartrate 50 MG TAB PO SCH (08:59)
[2017-12-22] MEDS: Nitroglycerin 0.1mg/Hour PATCH TD SCH (08:59)
[2017-12-22] MEDS: Pantoprazole 40 MG VIAL IVP SCH (09:00)
[2017-12-22] MEDS: Polyethylene Glycol 3350 17 GM Packet PO SCH (09:00)
[2017-12-22] MEDS: Ondansetron ODT 4 MG TAB PO PRN (09:05)
--- NOTE | 2017-12-22 11:43 | PRG ---
DATE OF SERVICE: 12/22/2017 SUBJECTIVE: Ms. Musa is doing the same. She states that the blood may have helped her a little. Discussed with nursing and she apparently is still hardly eating and still not wanting to do any act ivity. They apparently made her have a shower and sit up in a chair. I had a long discussion with t he yesterday and explained to him that he really needs to encourage her to do more. OBJECTIVE: VITAL SIGNS: She is afebrile, heart rate 73, respirations 18, oxygen saturation 96% on 1 liter, bloo d pressure 189/82. CARDIOVASCULAR SYSTEM: S1, S2 plus. RESPIRATORY SYSTEM: Normal vesicular breath sounds. ABDOMEN: Soft, nontender, bowel sounds heard in all quadrants. Colostomy site is healthy. EXTREMITIES: Without cyanosis or clubbing. CENTRAL NERVOUS SYSTEM: Significant deconditioning. LABORATORY DATA: White count is 8.5, hemoglobin and hematocrit is 8.8 and 28.2, increased from 7.2 a nd 22.8. Chemistry shows sodium 134, potassium 3.7, BUN and creatinine 11 and 0.74. IMPRESSION: 1. Resolved ileus. 2. Improved anemia after 1 unit of blood transfusion. 3. Significant deconditioning. 4. Poor p.o. intake. 5. Hypertension. 6. Resolved hypokalemia. 7. Depression. PLAN: 1. Adjust blood pressure medications. 2. Continue to encourage p.o. intake. She is getting PEG tube feeding. 3. May need snf placement because at this stage, she is unable to take care of herself and her colostomy. 4. Recheck laboratory values. 5. Discussed with patient in detail. All questions answered.
[2017-12-22] MEDS: Amlodipine 10 MG TAB PO SCH (20:53)
[2017-12-23] MEDS: Labetalol HCl 100 MG/20 ML VIAL SLOW IVP PRN (05:03)
[2017-12-23] MEDS: Pantoprazole 40 MG VIAL IVP SCH (08:57)
[2017-12-23] MEDS: Enoxaparin Sodium 30 MG/0.3 ML SYRINGE SC SCH (09:00)
[2017-12-23] MEDS: Nitroglycerin 0.1mg/Hour PATCH TD SCH (09:02)
[2017-12-23] MEDS: Metoclopramide HCl 10 MG TAB PO SCH ×4 (09:05→21:34)
[2017-12-23] MEDS: Metoprolol Tartrate 50 MG TAB PO SCH (09:05)
[2017-12-23] MEDS: Polyethylene Glycol 3350 17 GM Packet PO SCH (09:06)
[2017-12-23] MEDS: hydrALAZINE 25 MG TAB PO SCH ×3 (09:06→21:33)
[2017-12-23] MEDS: traMADol HCl 50 MG TAB PO PRN ×2 (12:02→21:34)
--- NOTE | 2017-12-23 13:22 | PRG ---
DATE OF SERVICE: 12/23/2017 SUBJECTIVE: Ms. Musa is doing the same. She states that she ate better. I looked at her calorie count list and she ate like 4 bites of her food, basically a 1/4 of her serving is what it is marked . She is getting a whole can of tube feedings after she eats. Spouse is in the room. Again, zeb rced the importance of her eating and participating with therapy. She states that she sat up for a w hile and she did participate with therapy today. OBJECTIVE: VITAL SIGNS: She is afebrile, heart rate is 76, respirations 20, and oxygen saturation 95%, blood pr essure 163/72. CARDIOVASCULAR SYSTEM: S1 and S2 plus. RESPIRATORY SYSTEM: Normal vesicular breath sounds. ABDOMEN: Soft, minimal tenderness in the colostomy site. Bowel sounds heard in all quadrants. EXTREMITIES: Without cyanosis or clubbing. CENTRAL NERVOUS SYSTEM: Generalized weakness. IMPRESSION: 1. Resolved ileus. 2. Hypertension, improving, controlled. 3. Depression. 4. Significant deconditioning. 5. Decreased p.o. intake. PLAN: 1. Three-day calorie count. 2. Encouraged p.o. intake. 3. Supplementation with PEG tube feeding. 4. Deep vein thrombosis and stress ulcer prophylaxis. 5. Decubitus precautions. 6. Adjust blood pressure medication. 7. Discussed with patient and spouse in detail.
[2017-12-23] MEDS: cloNIDine 0.3mg/24 Hour PATCH TD SCH (15:20)
[2017-12-23] MEDS: Ondansetron ODT 4 MG TAB PO PRN (17:25)
[2017-12-23] MEDS: Amlodipine 10 MG TAB PO SCH (21:33)
[2017-12-23] MEDS: ALPRAZolam 0.25 MG TAB PO PRN (22:39)
[2017-12-24 05:34] LABS: #Eosinphils 0.1 thou/uL (0.0-0.7); #Lymphocytes 0.8 thou/uL (1.20-3.40); #Monocytes 0.4 thou/uL (0.11-0.59); #Neutrophils 5.8 thou/uL (1.40-6.50); %Basophils 0.4 % (0.0-1.0); %Eosinophils 1.7 % (0.0-10.0); %Lymphocytes 11.1 % (21.0-51.0); %Monocytes 5.4 % (0.0-10.0); %Neutrophils 81.4 % (42.0-75.0); Hemoglobin 8.6 g/dL (12.0-16.0); Mean Corpuscular HGB CONC 31.1 g/dL (32.0-36.0); Mean Corpuscular Hemoglobin 26.8 pg (27.0-31.0); Mean Corpuscular Volume 86.2 fl (81.0-99.0); Mean Platelet Volume 5.7 fL (7.4-10.4); Platelet Count 431 thou/uL (130-400); RBC Distribution Width 13.8 % (11.5-14.5); White Blood Cell (WBC) Count 7.1 thou/uL (4.8-10.8)
[2017-12-24] MEDS: traMADol HCl 50 MG TAB PO PRN ×2 (05:35→18:15)
[2017-12-24 05:47] LABS: Anion Gap 11 mmol/L (10-20); BUN (Urea Nitrogen) 14 mg/dL (9.8-20.1); Calc. Creatinine Clearance 64 mL/min (70-130); Calcium 8.4 mg/dL (7.8-10.44); Carbon Dioxide 25 mmol/L (23-31); Chloride 103 mmol/L (98-107); Estimated GFR-MDRD 71; Glucose 109 mg/dL (83-110); Potassium 3.8 mmol/L (3.5-5.1); Sodium 135 mmol/L (136-145)
[2017-12-24] MEDS: Pantoprazole 40 MG VIAL IVP SCH ×2 (09:45→09:48)
[2017-12-24] MEDS: Nitroglycerin 0.1mg/Hour PATCH TD SCH (09:48)
[2017-12-24] MEDS: Enoxaparin Sodium 30 MG/0.3 ML SYRINGE SC SCH (09:48)
[2017-12-24] MEDS: Metoclopramide HCl 10 MG TAB PO SCH ×4 (09:49→20:30)
[2017-12-24] MEDS: hydrALAZINE 25 MG TAB PO SCH ×3 (09:49→20:30)
[2017-12-24] MEDS: Metoprolol Tartrate 50 MG TAB PO SCH (09:49)
[2017-12-24] MEDS: Polyethylene Glycol 3350 17 GM Packet PO SCH (09:50)
[2017-12-24] MEDS ORDERED: Metoclopramide HCl 10 MG TAB PO SCH ×2 (13:05→13:15)
--- NOTE | 2017-12-24 14:46 | PRG ---
DATE OF SERVICE: 12/24/2017 SUBJECTIVE: Ms. Musa is still not eating well. She apparently had about 550 calories yesterday o f which 375 was through [facility]. She states that she is nauseous. She does have the Zofran ordered. Di scussed with therapy and states that she is still needing significant assistance, but they think that she is progressing, spouse is in the room and she apparently sat up for 2 hours according to the spo use, she did not walk this morning. OBJECTIVE: VITAL SIGNS: She is afebrile, heart rate is 85, respirations 20, oxygen saturation 96%, and blood pr essure 168/75. CARDIOVASCULAR: S1 and S2 plus. RESPIRATORY: Normal vesicular breath sounds. ABDOMEN: Soft, minimal tenderness in the colostomy site. Bowel sounds heard in all quadrants. EXTREMITIES: Without cyanosis or clubbing. LABORATORY VALUES: White count 7.1, H&H is 8.6 and 27.6. Sodium 135, potassium 3.8, BUN and creatin ine is 14.77. IMPRESSION: 1. Hypertension, not well controlled. 2. Gastroesophageal reflux disease. 3. Hiatal hernia status post PEG tube placement for anchoring. 4. Resolved ileus. 5. Large bowel obstruction, status post sigmoid colectomy and colostomy placement. 6. Degenerative joint disease. PLAN: 1. Continue current medications. 2. Nutritional support. 3. DVT and stress ulcer prophylaxis. 4. PEG tube feeding. 5. Physical therapy. 6. Routine laboratory values. 7. Discussed with patient and family in detail. All questions answered.
[2017-12-24] MEDS: Amlodipine 10 MG TAB PO SCH (20:30)
[2017-12-24] MEDS: ALPRAZolam 0.25 MG TAB PO PRN (20:31)
[2017-12-25] MEDS: traMADol HCl 50 MG TAB PO PRN ×4 (00:02→20:43)
[2017-12-25] MEDS: Metoclopramide HCl 10 MG TAB PO SCH ×4 (08:09→20:42)
[2017-12-25] MEDS: Metoprolol Tartrate 50 MG TAB PO SCH (08:10)
[2017-12-25] MEDS: Nitroglycerin 0.1mg/Hour PATCH TD SCH (08:10)
[2017-12-25] MEDS: hydrALAZINE 25 MG TAB PO SCH ×3 (08:10→20:41)
[2017-12-25] MEDS: Enoxaparin Sodium 30 MG/0.3 ML SYRINGE SC SCH (08:10)
[2017-12-25] MEDS: Polyethylene Glycol 3350 17 GM Packet PO SCH (08:11)
[2017-12-25] MEDS ORDERED: ALPRAZolam 0.25 MG TAB PO PRN (13:12)
--- NOTE | 2017-12-25 13:26 | PRG ---
DATE OF SERVICE: 12/25/2017 SUBJECTIVE: Ms. Musa is still not eating well. Her calorie count is dismal. I had a long discus marisela with her and her [id number]. The plan is to try nocturnal feedings to give her some nutrit ion and see if that will give her more energy. Also cutting down on her Xanax to just nighttime and adding Remeron to see if it will improve her appetite. I reviewed her medications. I do not see any thing there which will be causing her nausea. I have made a note for them to give her potassium thro ugh her PEG tube if she finds it hard to swallow. OBJECTIVE: VITAL SIGNS: She is afebrile, heart rate is 93, respirations 16, oxygen saturation 93% on 2 liters, blood pressure 151/69. CARDIOVASCULAR SYSTEM: S1, S2 plus. RESPIRATORY SYSTEM: Normal vesicular breath sounds. ABDOMEN: Soft and nontender. Bowel sounds heard in all quadrants. EXTREMITIES: Without cyanosis or clubbing. LABORATORY DATA: White count is 7.1, hemoglobin and hematocrit is 8.6 and 27.6. Sodium 135, potassi um 3.8, BUN and creatinine are 14 and 0.77. IMPRESSION: 1. Resolved ileus. 2. Recent sigmoid colectomy for large bowel obstruction and placement of colostomy. 3. Significant depression. 4. Hypertension, improving control. 5. Significant deconditioning. PLAN: 1. Her Reglan was decreased yesterday to see if that may be affecting her mood. 2. We will decrease her Xanax to just half a tablet at bedtime. 3. Add Remeron 15 mg p.o. at bedtime. 4. Start Jevity 1.5 60 mL from 9:00 p.m. to 6:00 a.m. 5. Recheck laboratories in the morning. 6. Discussed with [id number] in detail. If patient does not improve, really do not think famil y can take care of her at home and she may have to go to a nursing facility. No evidence for any inf ection.
[2017-12-25] MEDS: Amlodipine 10 MG TAB PO SCH (20:41)
[2017-12-25] MEDS: Mirtazapine 15 MG TAB PO SCH (20:42)
[2017-12-26] MEDS: traMADol HCl 50 MG TAB PO PRN ×3 (02:23→15:11)
[2017-12-26 05:35] LABS: #Basophils 0.1 thou/uL (0.0-0.2); #Eosinphils 0.1 thou/uL (0.0-0.7); #Lymphocytes 0.7 thou/uL (1.20-3.40); #Monocytes 0.6 thou/uL (0.11-0.59); #Neutrophils 5.5 thou/uL (1.40-6.50); %Basophils 0.7 % (0.0-1.0); %Eosinophils 1.8 % (0.0-10.0); %Lymphocytes 9.9 % (21.0-51.0); %Monocytes 8.5 % (0.0-10.0); %Neutrophils 79.1 % (42.0-75.0); Hemoglobin 9.2 g/dL (12.0-16.0); Mean Corpuscular HGB CONC 31.9 g/dL (32.0-36.0); Mean Corpuscular Hemoglobin 27.4 pg (27.0-31.0); Mean Corpuscular Volume 85.9 fl (81.0-99.0); Mean Platelet Volume 5.5 fL (7.4-10.4); Platelet Count 486 thou/uL (130-400); RBC Distribution Width 13.6 % (11.5-14.5); Red Blood Cell (RBC) Count 3.35 mill/uL (4.20-5.40)
[2017-12-26 05:45] LABS: Anion Gap 12 mmol/L (10-20); BUN (Urea Nitrogen) 14 mg/dL (9.8-20.1); Calc. Creatinine Clearance 65 mL/min (70-130); Calcium 8.9 mg/dL (7.8-10.44); Carbon Dioxide 27 mmol/L (23-31); Chloride 102 mmol/L (98-107); Estimated GFR-MDRD 73; Glucose 138 mg/dL (83-110); Potassium 3.5 mmol/L (3.5-5.1); Sodium 137 mmol/L (136-145)
[2017-12-26] MEDS: Metoclopramide HCl 10 MG TAB PO SCH ×4 (07:59→20:49)
[2017-12-26] MEDS: hydrALAZINE 25 MG TAB PO SCH ×3 (08:01→20:48)
[2017-12-26] MEDS: Enoxaparin Sodium 30 MG/0.3 ML SYRINGE SC SCH (08:01)
[2017-12-26] MEDS: Nitroglycerin 0.1mg/Hour PATCH TD SCH (08:01)
[2017-12-26] MEDS: Metoprolol Tartrate 50 MG TAB PO SCH (08:01)
[2017-12-26] MEDS: Polyethylene Glycol 3350 17 GM Packet PO SCH (08:02)
[2017-12-26] MEDS ORDERED: hydrALAZINE 10 MG TAB PO SCH (08:45)
--- NOTE | 2017-12-26 13:36 | PRG ---
DATE OF SERVICE: 12/26/2017 SUBJECTIVE: Ms. Musa is doing well, tolerating her nighttime feedings. She apparently ate half o f her eggs this morning. She ate only 10% of lunch. Discussed with therapy and she hardly is doing very much. OBJECTIVE: VITAL SIGNS: She is afebrile, heart rate is 77, oxygen saturation is 94% on room air, blood pressure 161/74. It is still fluctuating. CARDIOVASCULAR: S1, S2 plus. RESPIRATORY: Normal vesicular breath sounds. ABDOMEN: Soft, nontender. PEG tube site is healthy. Colostomy site is healthy. Bowel sounds heard in all quadrants. EXTREMITIES: Without cyanosis or clubbing. CENTRAL NERVOUS SYSTEM: Persistent weakness. IMPRESSION: 1. Resolved ileus. 2. Colostomy for bowel obstruction, status post sigmoid colectomy. 3. Hypertension, still with fluctuating control. 4. Decreased p.o. intake. 5. Significant deconditioning. 6. Gastroesophageal reflux disease. PLAN: 1. Decrease Reglan to b.i.d., just want to make sure that is not what is causing her somnolence. 2. She is already on a nitropatch, her blood pressure. 3. Continue Remeron. 4. Nocturnal feeding. 5. Increase activity. 6. Change metoprolol to carvedilol. 7. I discussed with the patient and in detail. All questions answered.
[2017-12-26] MEDS: Carvedilol 6.25 MG TAB PO SCH (17:04)
[2017-12-26] MEDS: Mirtazapine 15 MG TAB PO SCH (20:48)
[2017-12-26] MEDS: Amlodipine 10 MG TAB PO SCH (20:49)
[2017-12-27] MEDS: traMADol HCl 50 MG TAB PO PRN (07:51)
[2017-12-27] MEDS: Metoclopramide HCl 10 MG TAB PO SCH ×4 (07:51→20:23)
[2017-12-27] MEDS: Nitroglycerin 0.1mg/Hour PATCH TD SCH (07:52)
[2017-12-27] MEDS: Polyethylene Glycol 3350 17 GM Packet PO SCH (08:41)
[2017-12-27] MEDS: Enoxaparin Sodium 30 MG/0.3 ML SYRINGE SC SCH (08:41)
[2017-12-27] MEDS: hydrALAZINE 25 MG TAB PO SCH ×3 (08:41→20:23)
[2017-12-27] MEDS: Carvedilol 6.25 MG TAB PO SCH ×2 (08:42→17:06)
[2017-12-27] MEDS ORDERED: Cholecalciferol (Vitamin D3) 400 UNITS TAB ONE (10:48)
[2017-12-27] MEDS: Amlodipine 10 MG TAB PO SCH (20:24)
[2017-12-27] MEDS: Mirtazapine 15 MG TAB PO SCH (20:24)
[2017-12-28] MEDS: Carvedilol 6.25 MG TAB PO SCH ×2 (08:17→17:22)
[2017-12-28] MEDS: Enoxaparin Sodium 30 MG/0.3 ML SYRINGE SC SCH (08:17)
[2017-12-28] MEDS: Polyethylene Glycol 3350 17 GM Packet PO SCH (08:17)
[2017-12-28] MEDS: hydrALAZINE 25 MG TAB PO SCH ×3 (08:18→20:21)
[2017-12-28] MEDS: Metoclopramide HCl 10 MG TAB PO SCH ×4 (08:19→20:21)
[2017-12-28] MEDS: Nitroglycerin 0.1mg/Hour PATCH TD SCH (08:19)
--- NOTE | 2017-12-28 09:16 | PRG ---
DATE OF ADMISSION: 11/29/2017 DATE OF PROGRESS NOTE: 12/28/2017 HISTORY OF PRESENT ILLNESS: Ms. Musa is a very pleasant 82-year-old white female who had a bowel obstruction. She underwent an exploratory laparotomy and had a sigmoid mass which was removed. Her large hiatal hernia was addressed with gastropexy, hiatal hernia was improved with anchoring the PEG tube. Pathology revealed a chronic diverticular disease. The patient was initially started and adis ran with IV antibiotics and fluids eventually, significantly improved. She is off those right now. She is at [facility] for physical therapy and occupational therapy, and seems to be g etting better. The patient continues not want to eat much. Her bowels have had multiple ileus, but she seems to be doing well today. She is here for physical therapy and occupational therapy, and slowly getting bett er. She did ask me to review her medications this morning. It is noted that Dr. Mercedes garrison switched her from metoprolol to carvedilol and decrease Reglan to b.i.d. along with keeping her n itropatch on. OBJECTIVE: VITAL SIGNS: Today reveal blood pressure 169/72, pulse 86, respirations 18 to 20, O2 saturation 93% on room air, T-max 96.8. GENERAL: This is a well-developed, well-nourished, slightly obese white female, in no apparent distr ess at this time. HEENT: Reveals normocephalic, nontraumatic cranium. Pupils equal, round, and reactive. Extraocular movements intact. Nose and throat are dry, but clear. NECK: Supple without mass, nodes, or bruits. LUNGS: Chest is clear to auscultation. No rales, no rhonchi, no wheezes are heard. No cough is not ed. HEART: Reveals a regular rate and rhythm without murmurs, gallops, or rubs. ABDOMEN: Soft, nontender, without organomegaly, normal bowel sounds are noted. No rebound or guardi ng is noted. GENITOURINARY: Deferred. EXTREMITIES: Reveal no clubbing, cyanosis, or edema. IMPRESSION: 1. Ileus, resolved at this time. 2. Colostomy for bowel obstruction, status post sigmoid colectomy. 3. Poor oral intake. 4. Significant deconditioning. 5. Hypertension with fair, but fluctuating control. 6. Gastroesophageal reflux disease. 7. Generalized weakness. PLAN: 1. We will continue to monitor the patient's medications. 2. It is noted that Dr. Long decreased her Reglan to twice a day. 3. Continue nitropatch. 4. Continue Remeron. Continue overnight feedings. 5. Continue physical therapy and occupational therapy. 6. Encourage the patient to get out of bed as much as possible today. 7. Metoprolol was switched over to carvedilol. 8. Continue present therapies.
[2017-12-28] MEDS: Amlodipine 10 MG TAB PO SCH (20:21)
[2017-12-28] MEDS: Mirtazapine 15 MG TAB PO SCH (20:22)
[2017-12-29] MEDS: traMADol HCl 50 MG TAB PO PRN ×2 (00:14→20:06)
[2017-12-29 04:38] VITALS: BMI 25.4
[2017-12-29] MEDS: Nitroglycerin 0.1mg/Hour PATCH TD SCH (08:22)
[2017-12-29] MEDS: hydrALAZINE 25 MG TAB PO SCH ×3 (08:22→20:08)
[2017-12-29] MEDS: Carvedilol 6.25 MG TAB PO SCH ×2 (08:23→16:35)
[2017-12-29] MEDS: Metoclopramide HCl 10 MG TAB PO SCH ×4 (08:23→20:08)
[2017-12-29] MEDS: Enoxaparin Sodium 30 MG/0.3 ML SYRINGE SC SCH (08:24)
[2017-12-29] MEDS: Polyethylene Glycol 3350 17 GM Packet PO SCH (08:24)
[2017-12-29] MEDS: Mirtazapine 15 MG TAB PO SCH (20:08)
[2017-12-29] MEDS: Amlodipine 10 MG TAB PO SCH (20:08)
--- NOTE | 2017-12-29 23:07 | PRG ---
DATE OF SERVICE: 12/29/2017 SUBJECTIVE: Ms. Musa is a very pleasant 82-year-old white female, who unfortunately had a bowel o bstruction. She underwent exploratory laparotomy and found a sigmoid mass, which was removed. She a lso had a large hiatal hernia and had a gastropexy to address that. Pathology revealed a chronic div erticular disease and no tumor. The patient was initially started on IV antibiotics and fluids, even tually improved. She is off those right now. She is at [facility] for PT and OT. T he patient is actually doing much better. She still does not eat much. In the past month or two, trace blount has had significant multiple ileus. She seemed to be doing fairly well. She is still participatin g with physical therapy and occupational therapy. The patient states she is doing well, has no complaints today. OBJECTIVE: VITAL SIGNS: Reveal blood pressure this morning was 181/83, pulse 83, respirations 23. Blood pressu re this evening was 114/94. T-max is 97.2. GENERAL: This is a well-developed, well-nourished, white female in no apparent distress at this time . HEENT: Reveals normocephalic, nontraumatic cranium. Pupils are equal, round, and reactive. Extraoc ular movements are intact. Nose and throat are slightly dry. NECK: Supple without mass, nodes or bruits. LUNGS: Chest is clear to auscultation. No rales, no rhonchi, no wheezes or cough is heard. CARDIOVASCULAR: Reveals a regular rate and rhythm without murmurs, gallops or rubs. ABDOMEN: Soft, nontender, without organomegaly. Today, bowel sounds seem to be normal again. No re bound or guarding is noted today. GENITOURINARY: Deferred. EXTREMITIES: Reveal no clubbing, cyanosis or edema. IMPRESSION: 1. Ileus, which is resolved. 2. Colostomy for bowel obstruction, status post sigmoid colectomy. 3. Continue with poor oral intake. 4. Hypertension with fluctuating values. 5. Significant deconditioning. 6. Gastroesophageal reflux disease. 7. Generalized weakness. PLAN: 1. Dr. Araya did decrease her Reglan to twice daily. 2. Continue nitropatch. 3. Continue Remeron. 4. Continue overnight feedings. 5. Continue to monitor the patient's medication. 6. Continue physical therapy and occupational therapy. 7. The patient is instructed to get out of bed as much as possible and participate with PT and OT. 8. Metoprolol switched over to carvedilol. 9. Continue present PT and OT.
[2017-12-30] MEDS: Metoclopramide HCl 10 MG TAB PO SCH ×4 (08:21→20:13)
[2017-12-30] MEDS: Carvedilol 6.25 MG TAB PO SCH ×2 (08:21→17:24)
[2017-12-30] MEDS: hydrALAZINE 25 MG TAB PO SCH ×3 (08:22→20:12)
[2017-12-30] MEDS: Enoxaparin Sodium 30 MG/0.3 ML SYRINGE SC SCH (08:22)
[2017-12-30] MEDS: traMADol HCl 50 MG TAB PO PRN (08:23)
[2017-12-30] MEDS: Polyethylene Glycol 3350 17 GM Packet PO SCH (08:23)
[2017-12-30] MEDS: Nitroglycerin 0.1mg/Hour PATCH TD SCH (08:23)
--- NOTE | 2017-12-30 13:36 | PRG ---
DATE OF SERVICE: 12/30/2017 SUBJECTIVE: Ms. Musa is doing well, still not eating or drinking anything, but she is tolerating her feeding. She denies any concerns or questions, but wanted to know if she is going to go home [facility]. I advised her that she needs to participate with therapy and be able to help her family take care of herself before she is safe to go home. Her spouse is in the room. OBJECTIVE: VITAL SIGNS: She is afebrile, heart rate is 87. Respirations, it is documented here is 26, but curr ently she is breathing at about 16. Oxygen saturation is 93%, blood pressure this morning was 139/65 with therapy did go up to 183/86, but then dropped down to 144/75. CARDIOVASCULAR: S1 and S2 plus. RESPIRATORY: Normal vesicular breath sounds. ABDOMEN: Soft, nontender, bowel sounds heard in all quadrants. Colostomy site is healthy. EXTREMITIES: Without cyanosis or clubbing. IMPRESSION: 1. Resolved ileus. 2. Persistent deconditioning. 3. Decreased p.o. intake. 4. Hypertension, improving. 5. Gastroesophageal reflux disease. 6. Dyslipidemia. 7. Depression. PLAN: 1. Continue current medications. 2. Continue to encourage patient to eat more and participate with therapy more. 3. DVT and stress ulcer prophylaxis. 4. Decubitus precautions. 5. Recheck laboratory values in the morning. 6. Change pantoprazole to granules per pharmacy recommendation. 7. Discussed with patient and spouse in detail. All questions answered.
[2017-12-30] MEDS: cloNIDine 0.3mg/24 Hour PATCH TD SCH (14:10)
[2017-12-30] MEDS: Amlodipine 10 MG TAB PO SCH (20:11)
[2017-12-30] MEDS: Mirtazapine 15 MG TAB PO SCH (20:12)
[2017-12-31 05:55] LABS: #Eosinphils 0.2 thou/uL (0.0-0.7); #Lymphocytes 0.9 thou/uL (1.20-3.40); #Monocytes 0.5 thou/uL (0.11-0.59); #Neutrophils 3.4 thou/uL (1.40-6.50); %Basophils 0.6 % (0.0-1.0); %Eosinophils 4.9 % (0.0-10.0); %Lymphocytes 18.6 % (21.0-51.0); %Monocytes 9.1 % (0.0-10.0); %Neutrophils 66.9 % (42.0-75.0); Hemoglobin 9.4 g/dL (12.0-16.0); Mean Corpuscular Hemoglobin 26.8 pg (27.0-31.0); Mean Corpuscular Volume 86.6 fl (81.0-99.0); Mean Platelet Volume 5.8 fL (7.4-10.4); Platelet Count 372 thou/uL (130-400); RBC Distribution Width 15.1 % (11.5-14.5); Red Blood Cell (RBC) Count 3.51 mill/uL (4.20-5.40)
[2017-12-31 06:02] LABS: Anion Gap 12 mmol/L (10-20); BUN (Urea Nitrogen) 17 mg/dL (9.8-20.1); Calc. Creatinine Clearance 62 mL/min (70-130); Calcium 9.1 mg/dL (7.8-10.44); Carbon Dioxide 26 mmol/L (23-31); Chloride 104 mmol/L (98-107); Estimated GFR-MDRD 70; Glucose 125 mg/dL (83-110); Potassium 4.4 mmol/L (3.5-5.1); Sodium 138 mmol/L (136-145)
[2017-12-31] MEDS: Metoclopramide HCl 10 MG TAB PO SCH ×2 (08:21→12:02)
[2017-12-31] MEDS: Carvedilol 6.25 MG TAB PO SCH (08:22)
[2017-12-31] MEDS: hydrALAZINE 25 MG TAB PO SCH ×2 (08:23→15:29)
[2017-12-31] MEDS: Nitroglycerin 0.1mg/Hour PATCH TD SCH (08:23)
[2017-12-31] MEDS: Enoxaparin Sodium 30 MG/0.3 ML SYRINGE SC SCH (08:23)
[2017-12-31] MEDS: Polyethylene Glycol 3350 17 GM Packet PO SCH (08:24)
[2017-12-31] MEDS ORDERED: Pantoprazole 40 MG GRANULES PACKET PER TUBE SCH (09:00)
[2017-12-31 09:15] VITALS: TEMP 96.1
[2017-12-31 10:17] VITALS: BP 118/58
[2017-12-31] MEDS ORDERED: Simethicone Chewable 80 MG TAB PER TUBE PRN (11:45)
[2017-12-31] MEDS ORDERED: ALPRAZolam 0.25 MG TAB PER TUBE PRN (11:45)
[2017-12-31] MEDS ORDERED: Carvedilol 6.25 MG TAB PER TUBE SCH (17:00)
--- NOTE | 2017-12-31 19:17 | DIS ---
DATE OF ADMISSION: 11/29/2017 DATE OF DISCHARGE: 12/31/2017 PRINCIPAL DIAGNOSES: 1. Status post large bowel obstruction, requiring sigmoid colectomy and colostomy placement. 2. Postoperative ileus, recurrent episodes, which finally resolved about 2 weeks ago. 3. Anorexia and decreased oral intake despite supplements and appetite stimulants. 4. Depression, on medications. 5. Hypertension, much improved, controlled. 6. Dyslipidemia. 7. Gastroesophageal reflux disease. 8. Significantly persistent deconditioning. 9. Degenerative joint disease. PROCEDURES: 1. Multiple abdominal x-rays. 2. Physical therapy. 3. Occupational therapy. CONSULTS: Physical Therapy and Occupational Therapy. COMPLICATIONS: None. ADVERSE REACTIONS: None. HOSPITAL COURSE: The patient was admitted on 11/29/2017 as a transfer from [facility] er undergoing a sigmoid colectomy and colostomy for a large bowel obstruction. She apparently did brandt ve postop ileus, which required her to stay in the hospital for a couple more days, but that resolved and she was transferred here. Unfortunately, soon after she came here, she started developing sympt oms of ileus, so I had talked to Dr. Hull and hook her PEG tube initially to low intermittent suctio n, but then changed to gravity drainage and kept her n.p.o., and started her on IV fluids, she improv ed. After a couple of days, then started her on a clear liquid diet and advanced it to a full liquid diet, but then she had the same issue. We had to do gravity drainage again for a few more days and this happened 3 times in total, but then finally her ileus resolved. She was also started on IV Regl an, which seemed to help. Her electrolytes remained stable during this time. Finally, she was sena ating her p.o. intake, but hardly eating anything. The dietitian come by and talked to the patient t o help with her choices and also started her on supplements that did not help, so I increased her Zol oft and added Remeron to see if we may be able to improve her appetite. Three day calorie count show ed dismal intake. We had to add initially half a can of Jevity 1.5 after her p.o. intake, which was less than 50% and since even that was not enough caloric intake, we switched her to nighttime feeds. She also really did not want to work with therapy and had to be forced. Therapy discharged her due to lack of progress. I had a long discussion with the family and they have arranged for her to go to a nursing facility in [place]. Hopefully, change in scenario will help her do more and eat more and the goal for the family is to have her home. PHYSICAL EXAMINATION: VITAL SIGNS: On the day of discharge, she is afebrile. Blood pressure was 197/84 in the morning, bu t after her morning medications, it was 118/58. Heart rate 82, respirations 18, oxygen saturation 94 % on room air. CARDIOVASCULAR: S1, S2 plus. RESPIRATORY: Normal vesicular breath sounds. ABDOMEN: Soft, nontender, bowel sounds heard in all quadrants. Colostomy site is healthy. EXTREMITIES: Without cyanosis or clubbing. Peripheral pulses are palpable. CENTRAL NERVOUS SYSTEM: Grossly nonfocal, but persistent generalized weakness. LABORATORY VALUES: Done this morning shows a white count of 5, hemoglobin and hematocrit is 9.4 and 30.4. Sodium 138, potassium 4.4, BUN and creatinine 17 and 0.78. DISCHARGE MEDICATIONS: 1. Tylenol liquid 480 mg q.4 hours p.r.n. 2. Xanax 0.125 mg p.o. at bedtime p.r.n. anxiety. 3. Norvasc 10 mg daily. 4. Carvedilol 12.5 mg b.i.d. 5. Catapres patch 0.3 mg q.7 days. 6. Hydralazine 100 mg p.o. t.i.d. 7. Reglan 5 mg p.o. before meals and at bedtime. 8. Remeron 15 mg p.o. at bedtime. 9. Nitro patch 0.1 mg 1 patch daily. 10. Benicar 40 mg daily. 11. Protonix 40 mg daily. 12. Potassium 20 mEq daily. 13. Zoloft 50 mg daily. 14. Simethicone 160 mg p.o. t.i.d. DISCHARGE INSTRUCTIONS: 1. PT, OT evaluation and treat. 2. PEG tube care. 3. Oxygen p.r.n. 4. She will be followed by with the senior medical transcriptionist there and will get her routine laboratory value s after he has evaluated her and his decision. She is to follow up with Dr. Hull in 5-7 days. The family was advised to call me with any questions or concerns. She is to also do Jevity 1.5 of 60 mL per hour from 9:00 p.m. to 6:00 a.m. She is also to be on Lovenox 30 mg subcutaneously daily. Discu ssed with the patient and daughter in detail, all questions answered. Total time spent on the discharge 35 minutes. Did not need any prescriptions sent to the pharmacy as she is going to a snf facility.
[2017-12-31] MEDS ORDERED: Amlodipine 10 MG TAB PER TUBE SCH (21:00)
--- NOTE | 2018-01-06 08:27 | PQF ---
Anais Musa POLLACHI MD [id number] [facility] [id number] CLINICAL DOCUMENTATION CLARIFICATION FORM: POST DISCHARGE Addendum to original discharge summary date: 12/31/2017 DATE: 01/06/2018 ATTN: Dr. Newsome Please exercise your independent, professional judgment in responding to the clarification form. Clinical indicators are provided on the bottom of this form for your review Please check appropriate box(s): [ ] Ileus is a postoperative complication related to recent surgery [ ] Ileus is not a postoperative complication related to recent surgery [ ] Other diagnosis (please specify) [x] Unable to determine In addition, please specify: Present on Admission (POA): [ ] Yes [ ] No [ ] Unable to determine CLINICAL INDICATORS - SIGNS / SYMPTOMS / LABS (per H&P/xrays) No output from colostomy. Abdominal x-ray 11/30: Persistent distended and dilated gas filled loops of small bowel suggesting either partial small bowel obstruction versus ileus. Abdominal x-ray 12/07: Moderate gaseous distention of large and small bowel suggesting ileus. Abdominal x-ray 12/07: Dilated lops of air-filled bowel with differential air fluid levels are present with the the imaged abdomen and pelvis. RISK FACTORS (per H&P/progress notes) Status post sigmoidectomy with end colostomy. Gastropexy with hiatal hernia repair (on acute care). TREATMENT: (per progress notes) IV Fluids. PEG tube to low intermittent suction/changed to gravity drainage. NPO/Clear liquid diet. (This form is maintained as a part of the permanent medical record) 2014 [employer]. All Rights Reserved Yen [email or web address] [phone] [email or web address]
--- NOTE | 2018-01-06 08:46 | PQF ---
Dimple, Anais VALENTE Michelle MD [id number] [facility] [id number] CLINICAL DOCUMENTATION CLARIFICATION FORM: POST DISCHARGE Addendum to original discharge summary date: 12/31/2017 Date: 01/06/2018 ATTN: Dr. Long Please exercise your independent, professional judgment in responding to the clarification form. Clinical indicators are provided on the bottom of this form for your review Please check appropriate box(s): [ x ] Protein Calorie Malnutrition: [ x ] Mild [ ] Moderate [ ] Severe [ ] Other Malnutrition (please specify) __ [ ] Underweight without malnutrition [ ] Cachexia [ ] Other diagnosis (please specify) [ ] Unable to determine In addition, please specify: Present on Admission (POA): [ x ] Yes [ ] No [ ] Unable to determine CLINICAL INDICATORS - SIGNS / SYMPTOMS / LABS BMI of 25.4. Per 12/20 progress note: Significant malnutrition with decreased p.o. intake. Per 12/21 and 12/22 progress notes: Poor po intake. Per 12/23 progress note: I looked at her calorie count list and she ate like 4 bites of her food, basically a 1/4 of her serviing is what is marked. Per 12/24 progress note: Ms. Musa is still not eating well. She apparently had about 550 calories yesterday of which 375 was through [facility]. Per 12/25 progress note: Her calorie count is dismal. Per 12/26 progress note: Ate half her eggs this morning. She ate only 10% of lunch. RISK FACTORS (per progress notes) Ileus. Change in appetite / nausea. Inability to consume adequate caloric intake PEG tube TREATMENT: (per progress notes) Calorie counts. Tube feedings/Overnight feeds. . Remeron. Moderate Malnutrition (in acute illness) Energy Intake: <75% of estimated energy requirement for > 7 days Weight Loss: 1-2%/1 week; 5%/ 1 month; 7.5%/3 months Other: mild body fat loss; mild muscle mass loss; mild fluid accumulation; Severe Malnutrition (in acute illness) Energy Intake: < 50% of estimated energy requirement for > 5 days Weight Loss: >1-2%/1 week; >5%/1 month; >7.5%/3 months Other: moderate body fat loss; moderate muscle mass loss; moderate- severe fluid accumulation; measurably reduced inspector machine cut glass strength Moderate Malnutrition (in chronic illness) Energy Intake: <75% of estimated energy requirement for >1 month Weight Loss: 5%/1 month; 7.5%/3 months; 10%/6 months; 20%/1 year Other: mild body fat loss; mild muscle mass loss; mild fluid accumulation Severe Malnutrition (in chronic illness) Energy Intake: <75% of estimated energy requirement for >1 month Weight Loss: >5%/1 month; >7.5%/3 months; >10%/6 months; >20%/1 year Other: severe body fat loss; severe muscle mass loss; severe fluid accumulation ; measurably reduced inspector machine cut glass strength (This form is maintained as a part of the permanent medical record) 2014 [employer]. All Rights Reserved Yen [email or web address] [phone] [email or web address]
== END 2017-12-31 16:55 | DRG 948 ==
LOC: NAV ACUTE 16:48
PROVIDERS: ADMIT Internal Medicine; ATTEND Internal Medicine
PROC: 30233N1 Transfusion of Nonautologous Red Blood Cells into Peripheral Vein, Percutaneous Approach (ICD-10-PCS; principal; 2017-12-21)
DX: R53.1 Weakness (principal); K56.7 Ileus, unspecified; E44.1 Mild protein-calorie malnutrition; Z93.1 Gastrostomy status; I48.91 Unspecified atrial fibrillation; D64.9 Anemia, unspecified; E78.5 Hyperlipidemia, unspecified; E87.6 Hypokalemia; I10 Essential (primary) hypertension; K21.9 Gastro-esophageal reflux disease without esophagitis; F32.9 Major depressive disorder, single episode, unspecified; F41.9 Anxiety disorder, unspecified; Z93.3 Colostomy status; Z90.49 Acquired absence of other specified parts of digestive tract; Z68.25 Body mass index [BMI] 25.0-25.9, adult; Z79.899 Other long term (current) drug therapy
CPT/HCPCS: 36415; 36430; 74018; 74019; 80048; 80053; 83605; 83735; 84443; 85025; 86850; 86900; 86901; 94640; A4216; C9113; G8978-GP-CM; G8979-GP-CK; G8996-GN-CI; G8997-GN-CI; J0360; J1160; J1650; J2270; J2405; J2765; J7042; J7620; P9016; Q0162

== ENCOUNTER 2020-08-30 11:04 | Emergency (ER) | payer MEDICARE ==
--- NOTE | 2020-08-30 11:44 | RAD ---
EXAM: XR Wrist 3 Lt View STANDARD PROVIDED CLINICAL HISTORY: Pain status post injury FINDINGS: There is no evidence for fracture or other acute osseous abnormality. Alignment appears anatomic. Cho ndrocalcinosis. Prominent first CMC and STT degenerative change. IMPRESSION: No evidence for an acute osseous abnormality. If there is persistent clinical concern, conservative m anagement and follow-up imaging advised.
--- NOTE | 2020-08-30 11:45 | RAD ---
EXAM: XR Hand Lt 3 View STANDARD PROVIDED CLINICAL HISTORY: Pain status post injury FINDINGS: There is no evidence for fracture or other acute osseous abnormality. Ulnar deviation the second MCP joint. Alignment appears otherwise anatomic. First CMC and STT degenerative changes are seen. IMPRESSION: No evidence for an acute osseous abnormality. If there is persistent clinical concern, conservative m anagement and follow-up imaging advised.
== END 2020-08-30 12:20 | disposition home or self-care (01) ==
LOC: NAV ERS 11:04
DX: S63.502A Unspecified sprain of left wrist, initial encounter (principal); S60.222A Contusion of left hand, initial encounter; M19.90 Unspecified osteoarthritis, unspecified site; I10 Essential (primary) hypertension; K21.9 Gastro-esophageal reflux disease without esophagitis; Z79.899 Other long term (current) drug therapy; Z87.448 Personal history of other diseases of urinary system; W18.30XA Fall on same level, unspecified, initial encounter

== ENCOUNTER 2021-02-01 23:37 | Emergency (ER) | payer MEDICARE | END 2021-02-02 01:57 | disposition home or self-care (01) | LOC: NAV ERS 23:37 | DX: S02.2XXA Fracture of nasal bones, initial encounter for closed fracture (principal); S00.93XA Contusion of unspecified part of head, initial encounter; M79.602 Pain in left arm; Z79.899 Other long term (current) drug therapy; W18.30XA Fall on same level, unspecified, initial encounter | CPT/HCPCS: 70450; 70486; 71045; 72125 ==

== ENCOUNTER 2021-04-10 14:52 | Emergency (ER) | payer MEDICARE ==
[2021-04-10] MEDS ORDERED: Acetaminophen 500 MG TAB ONE (16:16)
== END 2021-04-10 16:35 | disposition home or self-care (01) ==
LOC: NAV ERS 14:52
DX: S01.01XA Laceration without foreign body of scalp, initial encounter (principal); S33.8XXA Sprain of other parts of lumbar spine and pelvis, initial encounter; K21.9 Gastro-esophageal reflux disease without esophagitis; Z79.899 Other long term (current) drug therapy; W18.09XA Striking against other object with subsequent fall, initial encounter
CPT/HCPCS: 12001; 70450; 72125